=== PATIENT | female | born 1995 | race Caucasian/White ===

== ENCOUNTER 2025-01-10 11:05 | Inpatient (IN) ==
[2025-01-10] MEDS ORDERED: LIDOCAINE 1% LOCAL 20 ML VIAL INFIL PRN (11:35)
[2025-01-10] MEDS ORDERED: LACTATED RINGER'S 1,000 ML IV PRN (11:35)
[2025-01-10 12:09] LABS: Hematocrit (blood only) 36.8 % (37.0-47.0); Hemoglobin 12.6 g/dl (12.0-16.0); Mean Corpuscular Hemoglobin 30.3 pg (25.0-34.0); Mean Corpuscular Hgb Conc 34.2 g/dL (32.0-36.0); Mean Corpuscular Volume 88.5 fL (80.0-100.0); Mean Platelet Volume 10.1 fL (9.4-12.4); Platelet Count 211 K/uL (130-400); RDW Coefficient of Variation 13.7 % (11.5-14.5); RDW Standard Deviation 44.5 fL (36.4-46.3); Red Blood Count 4.16 M/uL (4.20-5.40); White Blood Count 13.28 K/ul (4.8-10.8)
--- NOTE | 2025-01-10 13:30 | History & Physical Report ---
Date of Service January 10, 2025 Assessment & Plan (1) Uterine contractions at greater than 20 weeks of gestation: Plan: 29-year-old G1, P0 at 37 weeks and 6 days of gestational presented today with contractions and in active labor, Vital signs stable afebrile, heart rate reassuring, GBS negative, Patient has about plan, she wanted to labor at home since 7 PM last night. We discussed pain management during labor, epidural in details. Patient wants to think about it and then decide. We discussed expectant management versus artificial rupture of membranes to augment labor, she wants to think about that to. All questions were answered. Continue to monitor. (2) Active labor at term: Admission and Anticipated Discharge Date Admission Date: January 10, 2025 History of Present Illness Primary Care Provider: Felicitas Masterson DO Patient is a 29-year-old G1, P0 at 37 weeks and 6 days of gestation who has been feeling contractions since 7 PM last night, ambulating 1 close around regular since this morning. She also had pinkish discharge off and on on toilet paper no bright red bleeding. No leakage of fluids. She reports good movements. She called this morning around 6:30 and recommended to come into labor and delivery. She wants to labor at home as much as she can and then she decided to come in. She has about plan and she does not want pain medication or epidural during labor. Her has been uncomplicated, GBS negative. Home Medications Medication Instructions Recorded Confirmed Type qqoyhgax-wzw-[id number]-FA 1 mg 1 tab PO DAILY 01/10/25 01/10/25 History tablet sertraline 50 mg tablet 50 mg PO 1XD 01/10/25 01/10/25 History Patient History Social History Smoking Status: Never smoker Second Hand Exposure: No; Do You Dip or Chew Tobacco: No; Tobacco Cessation Education Requested by Patient: No Hx Alcohol Use: No Hx Substance Use: No Preferred Language: Sinhala Communication Ability: Effective Tire Builder Heavy Service Required: No Beliefs That Will Affect Care: None marital status: Current Living Situation Comment: Lives with Other Information That Helps Us Care for You: No Feels Safe at Home: Yes Safety Concerns: Feels Safe At This Time 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 Devices: 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 No history of STDs, no history of chlamydia, gonorrhea, herpes Review of Systems as per Subjective / HPI Physical Exam Constitutional: WD/WN, vitals as above well developed, well nourished and + acute distress ( With contractions, looks tired since she has been up all night from havin) Genitourinary: normal external appearance OB Exam Abdomen: + vertex Manual OB Exam: + cervical dilation 5 cm, + cervical effacement 80% and + statio n -2 ( bulging bag) OB Exam Monitor Tracing: + external uterine monitor used and + category I Results & Data Vital Signs (Past 12 Hours) Vital Signs Temp Pulse Resp BP 01/10/25 11:23 36.9 C 84 16 126/80 01/10/25 11:21 84 126/80 01/10/25 11:20 16 01/10/25 11:20 36.9 C 16 Laboratory Results Lab Results 01/10/25 Range/Units 11:43 WBC 13.28 H (4.8-10.8) K/ul RBC 4.16 L (4.20-5.40) M/uL Hgb 12.6 (12.0-16.0) g/dl Hct 36.8 L (37.0-47.0) % MCV 88.5 (80.0-100.0) fL MCH 30.3 (25.0-34.0) pg MCHC 34.2 (32.0-36.0) g/dL RDW Std Deviation 44.5 (36.4-46.3) fL RDW Coeff of Brie 13.7 (11.5-14.5) % Plt Count 211 (130-400) K/uL MPV 10.1 (9.4-12.4) fL Treponema pallidum Ab Negative (Negative) Code Status & VTE Plan VTE Prophylaxis Plan VTE Prophylaxis will be ordered: No
--- NOTE | 2025-01-10 17:13 | Obstetrical Progress Note ---
Date of Service January 10, 2025 Assessment & Plan Admission and Anticipated Discharge Date Admission Date: January 10, 2025 Subjective Patient is moaning in pain VE; 8/ 90%/ 0, bulging bag, blood show+, declined AROM FHR categ I Continue to monitor closely Results & Data Vital Signs (Past 12 Hours) Vital Signs Temp Pulse Resp BP 01/10/25 15:07 37.1 C 14 01/10/25 15:04 86 128/79 01/10/25 14:31 90 126/88 01/10/25 11:23 36.9 C 84 16 126/80 01/10/25 11:21 84 126/80 01/10/25 11:20 16 01/10/25 11:20 36.9 C 16
--- OUTSIDE RECORDS SUMMARY | 2025-01-10 18:48 | External Medical Summary | Summary of Care ---
Author Name Unknown Organization [facility] Address [address] [place] [address] Phone [phone] Care Team Providers Care Veneer Joiner Name Role Phone Felicitas Masterson Ivy PALOMARES Primary Care Provider Reason for Visit * Reason Comments Outpatient Testing Encounter Details Date Type Department Care Team (Late st Contact Info) Description 12/27/2024 8:40 AM EST Laboratory Laboratory, [facility] [address] [place] [address] [facility] [address] [place] [address] Pruritus of in third trimester Allergies No known active allergiesdocumented as of this encounter (statuses as of 12/27/2024) Medications Sertraline HCl 50 MG Oral Tablet (Zoloft) TAKE 1 TABLET BY MOUTH EVERY MORNING 90 Tablet 3 06/14/2024 Active 28-0.8 MG Oral Tablet Take by mouth. Active Magnesium 250 MG Oral Tablet Take 1 Tablet by mouth in the morning. Active Calcium 200 MG Oral Tablet Take 200 mg by mouth in the morning. Active Vitamin D 50 MCG (1999 UT) Oral Capsule Take 2,000 Units by mouth in the morning. Active Iron Complex Oral Capsule Take by mouth. Active Vitamin C Oral Tablet Chewable Take 1 Tablet by mouth in the morning. Active documented as of this encounter (statuses as of 12/27/2024) Active Problems Problem Noted Date Diagnosed Date Rh negative status during 06/23/2024 Supervision of normal first 06/22/2024 Anxiety during 06/22/2024 Overview (06/22/2024): Sertraline, weekly therapy Anxiety Anemia Estimated Date of Delivery Comme nts Yes 01/25/2025 Based on last me nstrual period of 04/20/2024 (Exact Date) documented as of this encounter (statuses as of 12/27/2024) Social History Tobacco Use Types Packs/Day Years Used Date Smoking Tobacco: Never Smokeless Tobacco: Never Alcohol Use Standard Drinks/Week Comments Not Currently 7 (1 standard drink = 0.6 oz pur e alcohol) social PHQ-2 Answer Date Recorded PHQ Adult Total Score 2 05/04/2024 Hunger Vital Sign Answer Date Recorded Within the past 12 months, y ou worried that your food would run out before you got the money to buy more. Never true 09/06/20 24 Within the past 12 months, t he food you bought just didn't last and you didn't have money to get more. Never true 09/06/2024 [place] Depression Scale Answer Date Recorded [place] Depression Scale Total 13 06/22/2024 The thought of harming myself has occurred to me . Never 06/22/2024 Childcare Answer Date Recorded Do you feel overwhelmed with taking care of a child, family member or friend? No 09/06/2024 Does your family need help f inding childcare? (Household - for ages 0-17 years) Not on file 09/06/2024 Clothing Answer Date Recorded Have you been unable to get clothing when it was really needed? No 09/06/2024 Is your family able to get c lothes or diapers when needed? (Household - for ages 0-17 years) Not on file 09/06/2024 Personal Safety Answer Date Recorded Do you feel unsafe or have concerns for your saf ety? No 09/06/2024 Do you have concerns for you r family's safety? (Household - for ages 0-17 years) Not on file 09/06/2024 Utilities Answer Date Recorded Do you have trouble paying y our heating, water, or electric bill? No 09/06/2024 Is your family able to pay t he heat, water, or electric bill? (Household - for ages 0-17 years) Not on file 09/06/2024 Does your family have access to good internet? (Household - for ages 0-17 years) Not on file 09/06/2024 Employment Status Answer Date Recorded Are you unemployed or without regular income? No 09/06/2024 Does the household have a re gular source of income? (Household - for ages 0-17 years) Not on file 09/06/2024 Social Connections Answer Date Recorded How often do you feel lonely or isolated from th ose around you? Never 09/06/2024 Financial Resource Strain Answer Date R ecorded Do you have any trouble payi ng for your medications, or do you think you might in the future? No 09/06/2024 Does your family have troubl e paying for medicine? (Household - for ages 0-17 years) Not on file 09/06/2024 Transportation Needs Answer Date Record ed READ ONLY Do you have troubl e getting a ride to medical visits or work? Never True 09/06/2024 Does your family have a hard time getting a ride to doctors visits? (Household - for ages 0-17 years) Not on file 09/06/2024 Has lack of transportation k ept you from medical appointments, meetings, work, or from getting things needed for daily living? Check all that apply. No 09/06/2024 Do you (or your family) have trouble finding or paying for a ride (transportation)? (Household - for ages 0-17 years) Not on file 09/06/2024 Housing Stability Answer Date Recorded Do you currently live in a s helter or have no steady place to sleep at night? No 09/06/2024 READ ONLY Do you think you a re at risk of becoming homeless? No 09/06/2024 Does your family worry about paying for your home or becoming homeless? (Household - for ages 0-17 years) Not on file 1 Are you homeless or worried that you might be in the future? No 09/06/2024 Are you (or your family) nan eless or worried that you might be in the future? (Household - for ages 0-17 years) Not on file Food Insecurity Answer Date Recorded Do you need food for this week? No 09/06/2024 Are you able to get enough f ood for your family? (Household - for ages 0-17 years) Not on file 09/06/2024 Does your family need food t his week? (Household - for ages 0-17 years) Not on file 09/06/2024 Do you always have enough fo od for your family? (Household - for ages 0-17 years) Not on file 09/06/2024 Estimated Date of Delivery Comme nts Yes 01/25/2025 Based on last me nstrual period of 04/20/2024 (Exact Date) Sex and Gender Information Value Date Recorded Sex Assigned at Not on file Legal Sex Female 4:15 PM EST Gender Identity Not on file Sexual Orientation Not on file documented as of this encounter Plan of Treatment Upcoming Encounters Date Type Department Care Team (Late st Contact Info) Description 12/30/2024 10:45 AM EST Office Visit Gynecology/Obstetrics [facility] [address] [place] [address] Bernabe Reid MD [address] [place] [phone] 12/27/2025 2:20 PM EST Office Visit DermatologyAv [address] [place] [phone] Dary Chaves PA-C [address] [place] [address] [place] [phone] Pending Results Name Type Priority Associated Diagnoses Date /Time BILE ACIDS, FRACTIONATED AND TOTAL Lab Routine Pruritus of in third trimester 12/27/2024 8:25 AM EST Scheduled Procedures Name Priority Associated Diagnoses Date/Ti me COLONOSCOPY FLEXIBLE PROXIMAL DIAGNOSTIC Recall Blood in stool Health Maintenance Due Date Last Done Comments DTap/Tdap Vaccines (1 - Tdap) 2016 Hepatitis B Vaccine (1 of 3 - 19+ 3-dose series) 2016 COVID-19 Vaccine ( - 2023-2 5 season) 2024 Influenza Vaccine (FLU shot) (#1) 2024 Depression Screening 05/04/2025 05/04/2024 Pap Smear 07/21/2026 07/21/2023 HPV (Gardasil) Vaccine Aged Out No lo nger eligible based on patient's age to complete this topic MENINGOCOCCAL (MENACTRA/MENVEO) Aged Out No longer eligible based on patient's age to complete this topic Pneumococcal Vaccine: Pediat rics (0 to 5 Years) and At-Risk Patients (6 to 18 Years and 19+ Years) Aged Out No longer eligible b ased on patient's age to complete this topic documented as of this encounter Goals Goal Patient Goal Type Associated Problems Recent Progress Patient-Stated? Author Reminders Care Plan OB Reminders No Mychart, Provider documented as of this encounter Medical Devices Not on filedocumented as of this encounter Visit Diagnoses Diagnosis Pruritus of in third trimester documented in this encounter Additional Health Concerns Active Problems Noted Date Diagnosed Date OB Reminders 06/22/2024 documented as of this encounter Care Teams Veneer Joiner Relationship Specialty Start Date End Date Felicitas Masterson DO [address] [place] [address] PCP - General Family Medicine 04/22/23 documented as of this encounter
--- OUTSIDE RECORDS SUMMARY | 2025-01-10 18:48 | External Medical Summary | Summary of Care ---
Author Name Unknown Organization [facility] Address [address] [place] [address] Phone [phone] Care Team Providers Care Prize Coordinator Name Role Phone Felicitas Masterson Ivy Primary Care Provider Reason for Visit * Reason Comments Return Visit Encounter Details Date Type Department Care Team (Late st Contact Info) Description 12/30/2024 10:45 AM EST Office Visit Gynecology/Obstetric [facility] [address] [place] [address] Bernabe Reid MD [address] [place] [phone] Encounter for supervision of normal first in third trimester*; Anxiety during ; Rh negative status during in third trimester Allergies No known active allergiesdocumented as of this encounter (statuses as of 12/30/2024) Medications Sertraline HCl 50 MG Oral Tablet (Zoloft) TAKE 1 TABLET BY MOUTH EVERY MORNING 90 Tablet 3 06/14/2024 Active 28-0.8 MG Oral Tablet Take by mouth. Active Magnesium 250 MG Oral Tablet Take 1 Tablet by mouth in the morning. Active Calcium 200 MG Oral Tablet Take 200 mg by mouth in the morning. Active Vitamin D 50 MCG (2000 UT) Oral Capsule Take 2,000 Units by mouth in the morning. Active Iron Complex Oral Capsule Take by mouth. Active Vitamin C Oral Tablet Chewable Take 1 Tablet by mouth in the morning. Active documented as of this encounter (statuses as of 12/30/2024) Active Problems Problem Noted Date Diagnosed Date Rh negative status during 06/23/2024 Supervision of normal first 06/22/2024 Anxiety during 06/22/2024 Overview (06/22/2024): Sertraline, weekly therapy Anxiety Anemia Estimated Date of Delivery Comme nts Yes 01/25/2025 Based on last me nstrual period of 04/20/2024 (Exact Date) documented as of this encounter (statuses as of 12/30/2024) Social History Tobacco Use Types Packs/Day Years [...] money to get more. Never true 09/06/2024 [place] Depression Scale Answer Date Recorded [place] Depression Scale Total 13 06/22/2024 The thought [...] for ages 0-17 years) Not on file 10 /05/2024 Food Insecurity Answer Date Recorded Do you [...] on file documented as of this encounter Last Filed Vital Signs Vital Sign Reading Time Taken Comments Blood Pressure 130/72 12/30/2024 10:58 AM EST Pulse - - Temperature - - Respiratory Rate - - Oxygen Saturation - - Inhaled Oxygen Concentration - - Weight 98.9 kg (218 lb) 12/30/2024 10:58 AM EST Height - - Body Mass Index 31.28 08/17/2024 8:50 AM EDT documented in this encounter Progress Notes * Bernabe Reid MD - 12/30/2024 11:09 AM EST Patient is doing well with no significant complaints. Patient perceives good movement. Cervical culture was done. Pelvic exam was done. Results of pelvic exam were explained to both her and herhusband. 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 Manager Pauly documented in this encounter Plan of Treatment Upcoming Encounters Date Type Department Care Team (Late st Contact Info) Description 01/07/2025 2:45 PM EST Office Visit Gynecology/Obstetrics [facility] [address] [place] [address] Concepcion Sauceda CRNP [address] [place] [phone] 12/27/2025 2:20 PM EST Office Visit [address] [place] [phone] Dary Chaves PA-C [address] [place] [address] [place] [phone] Pending Results Name Type Priority Associated Diagnoses Date /Time GROUP B STREP CULTURE/PCR Lab Routine Encounter for supervision of normal first in third trimester 12/30/2024 11:53 AM EST Scheduled Orders Name Type Priority Associated Diagnoses Orde r Schedule GROUP B STREP CULTURE/PCR Lab Routine Encounter for supervision of normal first in third trimester Expected: 12/30/2024, Expires: 12/30/2025 Scheduled Procedures Name Priority Associated Diagnoses Date/Ti me COLONOSCOPY FLEXIBLE PROXIMAL DIAGNOSTIC Recall Blood in stool Health Maintenance Due Date Last Done Comments DTap/Tdap Vaccines (1 - Tdap) 2016 Hepatitis B Vaccine (1 of 3 - 19+ 3-dose series) 2016 COVID-19 Vaccine (2023-2 5 season) 2024 Influenza Vaccine (FLU shot) [...] as of this encounter Visit Diagnoses Diagnosis Encounter for supervision of normal first in third trimester- Primary Supervision of normal first Anxiety during Rh negative status during in third trimester documented in this encounter Additional Health Concerns Active Problems Noted Date Diagnosed Date OB Reminders 06/22/2024 documented as of this encounter Care Teams Prize Coordinator Relationship Specialty Start Date End Date Felicitas Masterson DO [address] [place] [address] PCP - General Family Medicine 04/22/23 documented as of this encounter
--- OUTSIDE RECORDS SUMMARY | 2025-01-10 18:48 | External Medical Summary ---
Author Name Unknown Address Unknown Organization K01:[facility] [address] [place] [address] Laboratory Report Ordering Provider Test Date Status PHILIPP MORRISSEY 12/30/2024 11:53:16 Final Observation Date Value Abnormality Reference (Units ) Status Streptococcus agalactiae DNA [Presence] in Specimen by ROSITA with probe detection 12/30/2024 11:53:16 Negative Negative Final No Group B Streptococcus det ected by culture-enhanced PCR (amplified probe). GBS GBSCT - [facility] 12/30/2024 11:53:16 0.0 Final GBS SPCCT - [facility] 12/30/2024 11:53:16 32.0 Final Performing Location [facility] [place] - [address] [place] [address]
--- OUTSIDE RECORDS SUMMARY | 2025-01-10 18:48 | External Medical Summary ---
Author Name Unknown Address Unknown Organization : Laboratory Report Ordering Provider Test Date Status LIVE JEREZ 12/27/2024 08:25:18 Final Observation Date Value Abnormality Reference (Units ) Status Bile acid [Moles/volume] in Serum --fasting 12/27/2024 08:25:18 SEE BELOW Final TESTS--------- ----RESULTS--------UNITS--REF. RANGE---
Cholic Acid 0.6 umol/L < OR = 1.8
Deoxycholic Acid <0.5 umol/L < OR = 2.4
Chenodeoxycholic Acid 0.6 umol/L < OR = 3.1
Total Bile Acids <1.5 umol/L < OR = 6.8
This test was developed and its analytical
performance characteristics have been determined
by [facility]. It has not been cleared or
approved by FDA. This assay has been validated
pursuant to the CLIA regulations and is used for
clinical purposes.
Test performed by [facility]
[address],
[place] [address]

Quality Improvement Manager: Lillie Brennan MD,PHD,KARON Performing Location
--- OUTSIDE RECORDS SUMMARY | 2025-01-10 18:48 | External Medical Summary | Summary of Care ---
Author Name Unknown Organization [facility] Address [address] [place] [place] [address] Phone [phone] Care Team Providers Care Interior Mechanic Name Role Phone Felicitas Masterson Ivy PALOMARES Primary Care Provider Reason for Visit * Reason Onset Date Comments Appointment 01/07/2025 Encounter Details Date Type Department Care Team (Late st Contact Info) Description 01/07/2025 Telephone Family Practice [facility] [address] [facility] [place] [address] Vidya Sauceda CRNP [address] [place] [address] Appointment Allergies No known active allergiesdocumented as of this encounter (statuses as of 01/10/2025) Medications Sertraline HCl 50 MG Oral Tablet [...] as of this encounter (statuses as of 01/10/2025) Active Problems Problem Noted Date Diagnosed Date Rh negative status during 06/23/2024 Supervision of normal first 06/22/2024 Anxiety during 06/22/2024 Overview (06/22/2024): Sertraline, weekly therapy Anxiety Anemia Estimated Date of Delivery Comme nts Yes 01/25/2025 Based on last me nstrual period of 04/20/2024 (Exact Date) documented as of this encounter (statuses as of 01/10/2025) Social History Tobacco Use Types Packs/Day Years [...] money to get more. Never true 09/06/2024 [place] Depression Scale Answer Date Recorded [place] Depression Scale Total 13 06/22/2024 The thought [...] ages 0-17 years) Not on file 09/06/2024 Food Insecurity Answer Date Recorded Within the past 12 months, y ou worried that your food would run out before you got the money to buy more. Never true 09/06/20 24 Within the past 12 months, t he food you bought just didn't last and you didn't have money to get more. Never true 09/06/2024 Do you need food for this week? No 09/06/2024 Estimated Date of Delivery Comme nts Yes 01/25/2025 Based on last me nstrual period of 04/20/2024 (Exact Date) Sex and Gender Information Value Date Recorded Sex Assigned at Not on file Legal Sex Female 4:15 PM EST Gender Identity Not on file Sexual Orientation Not on file documented as of this encounter Miscellaneous Notes * Telephone Encounter - Belle Nowak MD - 01/10/2025 8:31 AM EST I called her and no answer, LM to call me back Thanks * Telephone Encounter - Maggie Ruiz OSA - 01/07/2025 3:19 PM EST Pt needs a 1 week hansel would like it with vidya. Nothing open until the please assist documented in this encounter Plan of Treatment Upcoming Encounters Date Type Department Care Team (Late st Contact Info) Description 01/12/2025 1:00 PM EST Office Visit Gynecology/Obstetrics Dam[facility] Carney [address] [place] [address] Reba An, DNP, CNM [address] [place] [address] 12/27/2025 2:20 PM EST Office Visit [address] [place] [phone] Dary Chaves PA-C [address] [place] [address] [place] [phone] Scheduled Procedures Name Priority Associated Diagnoses Date/Ti [...] Not on filedocumented as of this encounter Additional Health Concerns Active Problems Noted Date Diagnosed Date OB Reminders 06/22/2024 documented as of this encounter Care Teams Interior Mechanic Relationship Specialty Start Date End Date Felicitas Masterson DO [address] [facility] [place] [address] PCP - General Family Medicine 04/22/23 documented as of this encounter
--- OUTSIDE RECORDS SUMMARY | 2025-01-10 18:48 | External Medical Summary | Summary of Care ---
Author Name Unknown Organization [facility] Address [address] [facility] [place] [address] Phone [phone] Care Team Providers Care Web Knitter Name Role Phone Felicitas Masterson Ivy PALOMARES Primary Care Provider Reason for Visit * Reason Onset Date Comments Appointment 01/07/2025 Encounter Details Date Type Department Care Team (Late st Contact Info) Description 01/07/2025 Telephone Family Practice [facility] [address] [place] [address] Concepcion Sauceda CRNP [address] [place] [address] Appointment Allergies No known active allergiesdocumented as [...] money to get more. Never true 09/06/2024 [place] Depression Scale Answer Date Recorded [place] Depression Scale Total 13 06/22/2024 The thought [...] encounter Miscellaneous Notes * Telephone Encounter - Maggie Ruiz OSA - 01/07/2025 3:19 PM EST Pt needs a 1 week hansel would like it with concepcion. Nothing open until the please assist documented in this encounter Plan of Treatment Upcoming Encounters Date Type Department Care Team (Late st Contact Info) Description 01/12/2025 1:00 PM EST Office Visit Gynecology/Obstetrics [facility] [address] [place] [address] Reba An, DNP, CNM [address] [place] [address] 12/27/2025 2:20 PM EST Office Visit [address]ermatologyAv [address] [place] [phone] Dary Chaves, PABuddy [address] [place] [address] [place] [phone] Scheduled Procedures Name Priority Associated Diagnoses Date/Ti me COLONOSCOPY FLEXIBLE PROXIMAL DIAGNOSTIC Recall Blood in stool Health Maintenance Due Date Last Done Comments DTap/Tdap Vaccines (1 - Tdap) 2016 Hepatitis B Vaccine (1 of 3 - 19+ 3-dose series) 2016 COVID-19 Vaccine (1 - 2023-2 5 season) 2024 Influenza Vaccine [...] documented as of this encounter Care Teams Web Knitter Relationship Specialty Start Date End Date Felicitas Masterson DO [address] [place] [place], [place] [address] PCP - General Family Medicine 04/22/23 documented as of this encounter
--- OUTSIDE RECORDS SUMMARY | 2025-01-10 18:48 | External Medical Summary ---
Author Name Unknown Address Unknown Organization K0G:[facility] [address] [place] [address] Laboratory Report Ordering Provider Test Date Status LIVE JEREZ 12/24/2024 13:53:18 Final Observation Date Value Abnormality Reference (Units ) Status WBC, Total 12/24/2024 13:53:18 9.50 4.00-10.8 0 (K/uL) Final RBC 12/24/2024 13:53:18 3.91 3.85-5.15 (M/uL) Final Hemoglobin 12/24/2024 13:53:18 12.1 12.0-15.3 (g/dL) Final HCT 12/24/2024 13:53:18 36.5 36.0-45.2 (%) Final MCV 12/24/2024 13:53:18 93.4 81.5-97.5 (fL) Final MCH 12/24/2024 13:53:18 30.9 27.0-34.0 (pg) Final MCHC 12/24/2024 13:53:18 33.2 32.0-36.0 (g/dL) Final RDW 12/24/2024 13:53:18 14.2 11.5-15.5 (%) Final Platelets 12/24/2024 13:53:18 218 140-400 (K /uL) Final MPV 12/24/2024 13:53:18 9.9 6.6-11.1 ( fL) Final Performing Location [facility] [address] [place] [address]
--- OUTSIDE RECORDS SUMMARY | 2025-01-10 18:48 | External Medical Summary | Summary of Care ---
Author Name Unknown Organization [facility] Address [address] [place] [address] Phone [phone] Care Team Providers Care Hris Analyst Name Role Phone Felicitas Masterson Ivy Primary Care Provider Reason for Visit * Reason Comments Return Visit Encounter Details Date Type Department Care Team (Late st Contact Info) Description 12/30/2024 10:45 AM EST Office Visit Gynecology/Obstetric [facility] [address] [place] [address] Bernabe Reid MD [address] [place] [phone] Encounter for supervision of normal first in [...] money to get more. Never true 09/06/2024 [place] Depression Scale Answer Date Recorded [place] Depression Scale Total 13 06/22/2024 The thought [...] were explained to both her and herhusband. Chemical Instrumentation Officer Pauly documented in this encounter Plan of Treatment Upcoming Encounters Date Type Department Care Team (Late st Contact Info) Description 01/07/2025 2:45 PM EST Office Visit Gynecology/Obstetrics [facility] [address] [place] [address] Concepcion Sauceda CRNP [address] [place] [address] 12/27/2025 2:20 PM EST Office Visit [address] [place] [phone] Dary Chaves PA-C [address] [place] [address] [place] [phone] Pending Results Name Type Priority Associated Diagnoses [...] documented as of this encounter Care Teams Hris Analyst Relationship Specialty Start Date End Date Felicitas Masterson DO [address] [place] [address] PCP - General Family Medicine 04/22/23 documented as of this encounter
--- OUTSIDE RECORDS SUMMARY | 2025-01-10 18:48 | External Medical Summary | Summary of Care ---
Author Name Unknown Organization [facility] Address [address] [place] [address] Phone [phone] Care Team Providers Care Ply Bander Name Role Phone Felicitas Masterson Ivy PALOMARES Primary Care Provider Reason for Visit * Reason Comments Return Visit Encounter Details Date Type Department Care Team (Late st Contact Info) Description 01/07/2025 2:45 PM EST Office Visit Gynecology/Obstetric s [facility] [address] [place] [address] Concepcion Sauceda CRNP [address] [place] [address] Encounter for supervision of normal first in third trimester*; Anxiety during ; Rh negative status during in third trimester Allergies No known active allergiesdocumented as of this encounter (statuses as of 01/07/2025) Medications Sertraline HCl 50 MG Oral Tablet [...] as of this encounter (statuses as of 01/07/2025) Active Problems Problem Noted Date Diagnosed Date Rh negative status during 06/23/2024 Supervision of normal first 06/22/2024 Anxiety during 06/22/2024 Overview (06/22/2024): Sertraline, weekly therapy Anxiety Anemia Estimated Date of Delivery Comme nts Yes 01/25/2025 Based on last me nstrual period of 04/20/2024 (Exact Date) documented as of this encounter (statuses as of 01/07/2025) Social History Tobacco Use Types Packs/Day Years [...] money to get more. Never true 09/06/2024 [place] Depression Scale Answer Date Recorded [place] Depression Scale Total 13 06/22/2024 The thought [...] Sign Reading Time Taken Comments Blood Pressure 126/74 01/07/2025 2:46 PM EST Pulse - - Temperature - - Respiratory Rate - - Oxygen Saturation - - Inhaled Oxygen Concentration - - Weight 100.5 kg (221 lb 9.3 oz) 01/07/2025 2:46 PM EST Height - - Body Mass Index 31.79 08/17/2024 8:50 AM EDT documented in this encounter Progress Notes * Concepcion Sauceda CRNP - 01/07/2025 3:04 PM EST 37w3d Normal aches and pains of . Baby is active. No contractions, bleeding, LOF. SLOAN Stone * Ariana Marino CMA - 01/07/2025 2:46 PM EST 37w3d Denies any concerns documented in this encounter Plan of Treatment Upcoming Encounters Date Type Department Care Team (Late st Contact Info) Description 01/12/2025 1:00 PM EST Office Visit Gynecology/Obstetrics [facility] [address] [place] [address] Reba An, DNP, CNM [address] [place] [address] 12/27/2025 2:20 PM EST Office Visit [address] [address] [place] [phone] Dary Chaves PA-C [address] [place] [address] [place] [phone] Scheduled Procedures Name Priority Associated Diagnoses Date/Ti [...] documented as of this encounter Care Teams Ply Bander Relationship Specialty Start Date End Date Felicitas Masterson DO [address] [place] [address] PCP - General Family Medicine 04/22/23 documented as of this encounter
--- OUTSIDE RECORDS SUMMARY | 2025-01-10 18:48 | External Medical Summary | Summary of Care ---
Author Name Unknown Organization [facility] Address [address] [place] [address] Phone [phone] Care Team Providers Care Maintenance Painter Name Role Phone Felicitas Masterson Ivy PALOMARES Primary Care Provider Reason for Visit * Reason Comments Return Visit Encounter Details Date Type Department Care Team (Late st Contact Info) Description 12/22/2024 2:15 PM EST Office Visit Gynecology/Obstetric s [facility] [address] [place] [address] Concepcion Sauceda CRNP [address] [place] [address] Encounter for supervision of normal first in third trimester*; Anxiety during ; Rh negative status during in third trimester Allergies No known active allergiesdocumented as of this encounter (statuses as of 12/22/2024) Medications Sertraline HCl 50 MG Oral Tablet [...] as of this encounter (statuses as of 12/22/2024) Active Problems Problem Noted Date Diagnosed Date Rh negative status during 06/23/2024 Supervision of normal first 06/22/2024 Anxiety during 06/22/2024 Overview (06/22/2024): Sertraline, weekly therapy Anxiety Anemia Estimated Date of Delivery Comme nts Yes 01/25/2025 Based on last me nstrual period of 04/20/2024 (Exact Date) documented as of this encounter (statuses as of 12/22/2024) Social History Tobacco Use Types Packs/Day Years [...] money to get more. Never true 09/06/2024 [place] Depression Scale Answer Date Recorded [place] Depression Scale Total 13 06/22/2024 The thought [...] Sign Reading Time Taken Comments Blood Pressure 122/70 12/22/2024 2:17 PM EST Pulse - - Temperature - - Respiratory Rate - - Oxygen Saturation - - Inhaled Oxygen Concentration - - Weight 98.9 kg (218 lb) 12/22/2024 2:17 PM EST Height - - Body Mass Index 31.28 08/17/2024 8:50 AM EDT documented in this encounter Progress Notes * Concepcion Sauceda CRNP - 12/22/2024 2:49 PM EST 35w1d Complaints: still with some vaginal discharge and odor. Vaginal swab negative last week. Feeling well otherwise. Good FM. No contractions, bleeding, or LOF. SLOAN Stone * Ariana Marino CMA - 12/22/2024 2:17 PM EST 35w1d Still having odor with discharge. Was tested 12/15/2024, WNL. documented in this encounter Plan of Treatment Upcoming Encounters Date Type Department Care Team (Late st Contact Info) Description 12/30/2024 10:45 AM EST Office Visit Gynecology/Obstetrics [facility] [address] [facility] [place] [address] Bernabe Reid MD [address] [place] [phone] 12/27/2025 2:20 PM EST Office [facility] [address] [place] [phone] Dary Chaves PA-C [address] [place] [address] [place] [phone] Scheduled Procedures Name Priority Associated Diagnoses Date/Ti [...] documented as of this encounter Care Teams Maintenance Painter Relationship Specialty Start Date End Date Felicitas Masterson DO [address] [place] [address] PCP - General Family Medicine 04/22/23 documented as of this encounter
--- OUTSIDE RECORDS SUMMARY | 2025-01-10 18:48 | External Medical Summary | Summary of Care ---
Author Name Unknown Organization [facility] Address [address] [place] [address] Phone [phone] Care Team Providers Care Granular Operator Name Role Phone Felicitas Masterson Ivy PALOMARES Primary Care Provider Reason for Visit * Reason Comments Outpatient Testing Encounter Details Date Type Department Care Team (Late st Contact Info) Description 12/24/2024 1:50 PM EST Laboratory Laboratory, [facility] [address] [place] [address] [facility] [address] [place] [address] Pruritus of in third trimester Allergies No known active allergiesdocumented as of this encounter (statuses as of 12/24/2024) Medications Sertraline HCl 50 MG Oral Tablet [...] as of this encounter (statuses as of 12/24/2024) Active Problems Problem Noted Date Diagnosed Date Rh negative status during 06/23/2024 Supervision of normal first 06/22/2024 Anxiety during 06/22/2024 Overview (06/22/2024): Sertraline, weekly therapy Anxiety Anemia Estimated Date of Delivery Comme nts Yes 01/25/2025 Based on last me nstrual period of 04/20/2024 (Exact Date) documented as of this encounter (statuses as of 12/24/2024) Social History Tobacco Use Types Packs/Day Years [...] money to get more. Never true 09/06/2024 [place] Depression Scale Answer Date Recorded [place] Depression Scale Total 13 06/22/2024 The thought [...] 12/30/2024 10:45 AM EST Office Visit Gynecology/Obstetrics [facility] [address] [place] [address] Bernabe Reid MD [address] [place] [phone] 12/27/2025 2:20 PM EST Office Visit [address] [address] [place] [phone] Dary Chaves PA-C [address] [place] [address] [place] [phone] Pending Results Name Type Priority Associated Diagnoses Date /Time CBC Lab Routine Pruritus of in third trimester 12/24/2024 1:53 PM EST Scheduled Procedures Name Priority Associated Diagnoses [...] Author Reminders Care Plan OB Reminders No Agustin, Provider documented as of this encounter Medical Devices Not on filedocumented as of this encounter Visit Diagnoses Diagnosis Pruritus of in third trimester documented in this encounter Additional Health Concerns Active Problems Noted Date Diagnosed Date OB Reminders 06/22/2024 documented as of this encounter Care Teams Granular Operator Relationship Specialty Start Date End Date Felicitas Masterson DO [address] [place] [address] PCP - General Family Medicine 04/22/23 documented as of this encounter
--- OUTSIDE RECORDS SUMMARY | 2025-01-10 18:49 | External Medical Summary ---
Author Name Unknown Address Unknown Organization K0G:[facility] [address] [place] [address] Laboratory Report Ordering Provider Test Date Status ASTER BEDOLLA 12/04/2024 12:39:12 Final Observation Date Value Abnormality Reference (Units ) Status Albumin 12/04/2024 12:39:12 3.4 Below low normal 3.8-5.0 (g/dL) Final AST (Aspartate aminotransferase) 12/04/2024 12:39:12 22 10-35 (U/L) Final Alk Phos 12/04/2024 12:39:12 140 Above high normal 35-130 (U/L) Final ALT (Alanine aminotransferase) 12/04/2024 12:39:12 31 10-35 (U/L) Final Bilirubin, Total 12/04/2024 12:39:12 <0.2 <=1.2 (mg/dL) Final Bilirubin, Direct 12/04/2024 12:39:12 0.1 0.0-0.3 (mg/dL) Final Protein 12/04/2024 12:39:12 6.0 6.0-8.3 (g/dL) Final Performing Location [facility] [address] [place] [address]
--- OUTSIDE RECORDS SUMMARY | 2025-01-10 18:49 | External Medical Summary | Summary of Care ---
Author Name Unknown Organization [facility] Address [address] [place] [address] Phone [phone] Care Team Providers Care Angiography Nurse Name Role Phone Felicitas Masterson Ivy Primary Care Provider Reason for Visit * Reason Comments Return Visit Encounter Details Date Type Department Care Team (Late st Contact Info) Description 11/05/2024 2:15 PM EST Office Visit Gynecology/Obstetric s [facility] Carney [address] [place] [address] Concepcion Sauceda CRNP [address] [place] [address] Encounter for supervision of normal first in third trimester*; Anxiety during ; Rh negative status during in third trimester Allergies No known active allergiesdocumented as of this encounter (statuses as of 11/05/2024) Medications Sertraline HCl 50 MG Oral Tablet (Zoloft) TAKE 1 TABLET BY MOUTH EVERY MORNING 90 Tablet 3 06/14/2024 Active 28-0.8 MG Oral Tablet Take by mouth. Active Magnesium 250 MG Oral Tablet Take 1 Tablet by mouth in the morning. Active Calcium 200 MG Oral Tablet Take 200 mg by mouth in the morning. Active Hospital, Clinic, or Other Facility Administered Medication Ordered Dose Route Frequency Start Date End Date Status Rho D Immune Globulin (Rhophylac) inj 300 mcgIndications:Rh negative status during in third trimester 300 mcg IM ONCE 11/05/2024 11/05/2024 Ended documented as of this encounter (statuses as of 11/05/2024) Active Problems Problem Noted Date Diagnosed Date Rh negative status during 06/23/2024 Supervision of normal first 06/22/2024 Anxiety during 06/22/2024 Overview (06/22/2024): Sertraline, weekly therapy Anxiety Anemia Estimated Date of Delivery Comme nts Yes 01/25/2025 Based on last me nstrual period of 04/20/2024 (Exact Date) documented as of this encounter (statuses as of 11/05/2024) Social History Tobacco Use Types Packs/Day Years [...] money to get more. Never true 09/06/2024 [place] Depression Scale Answer Date Recorded [place] Depression Scale Total 13 06/22/2024 The thought [...] Sign Reading Time Taken Comments Blood Pressure 122/68 11/05/2024 2:08 PM EST Pulse - - Temperature - - Respiratory Rate - - Oxygen Saturation - - Inhaled Oxygen Concentration - - Weight 92.5 kg (204 lb) 11/05/2024 2:08 PM EST Height - - Body Mass Index 29.27 08/17/2024 8:50 AM EDT documented in this encounter Progress Notes * Concepcion Sauceda CRNP - 11/05/2024 2:38 PM EST 28w3d Discussed boil in groin. No other concerns. Baby is active. No contractions, bleeding, LOF. Glucola, Rhogam today. SLOAN Stone * Ariana Marino CMA - 11/05/2024 2:08 PM EST 28w3d Rhogam today Declines TDAP documented in this encounter Plan of Treatment Upcoming Encounters Date Type Department Care Team (Late st Contact Info) Description 11/23/2024 1:30 PM EST Office Visit Gynecology/Obstetrics [facility] [address] [address] Concepcion Sauceda CRNP [address] [place] [address] 12/09/2024 1:00 PM EST Office Visit [address] [address] [place] [phone] Dary Chaves PA-C [address] [place] [address] [place] [address] Scheduled Procedures Name Priority Associated Diagnoses Date/Ti [...] 5 Years) and At-Risk Patients (6 to 64 Years) Aged Out No longer eligi ble based on patient's age to complete this [...] in third trimester documented in this encounter Administered Medications Inactive Administered Medications - up to 3 most recent administrations Medication Order MAR Action Action Date Dose Rate Site Rho D Immune Globulin (Rhophylac) inj 300 mcg 300 mcg, Intramuscular, ONCE, On Fri11/05/24 at 1500, For 1 dose, Do not administer until type and screen has been collected! 1 MCG = 5 INTERNATIONAL UNITSIndications:Rh negative status during in third trimester Given 11/05/2024 3:22 PM EST 300 mcg Ventrogluteal Left documented in this encounter Additional Health Concerns Active Problems Noted Date Diagnosed Date OB Reminders 06/22/2024 documented as of this encounter Care Teams Angiography Nurse Relationship Specialty Start Date End Date Felicitas Masterson DO [address] [place], [place] [phone] PCP - General Family Medicine 04/22/23 documented as of this encounter
--- OUTSIDE RECORDS SUMMARY | 2025-01-10 18:49 | External Medical Summary | Summary of Care ---
Author Name Unknown Organization [facility] Address [address] [place] [address] Phone [phone] Care Team Providers Care Tube Draw Helper Name Role Phone Felicitas Masterson Ivy PALOMARES Primary Care Provider Encounter Details Date Type Department Care Team (Late st Contact Info) Description 12/20/2024 Population Health External Data Unspecified Department Allergies No known active allergiesdocumented as of this encounter (statuses as of 12/20/2024) Medications Sertraline HCl 50 MG Oral Tablet [...] as of this encounter (statuses as of 12/20/2024) Active Problems Problem Noted Date Diagnosed Date Rh negative status during 06/23/2024 Supervision of normal first 06/22/2024 Anxiety during 06/22/2024 Overview (06/22/2024): Sertraline, weekly therapy Anxiety Anemia Estimated Date of Delivery Comme nts Yes 01/25/2025 Based on last me nstrual period of 04/20/2024 (Exact Date) documented as of this encounter (statuses as of 12/20/2024) Social History Tobacco Use Types Packs/Day Years [...] money to get more. Never true 09/06/2024 [place] Depression Scale Answer Date Recorded [place] Depression Scale Total 13 06/22/2024 The thought [...] Description 12/22/2024 2:15 PM EST [facility] [address] [place] [address] Concepcion Sauceda CRNP [address] [place] [address] 12/27/2025 2:20 PM EST Office Visit [address] [place] [phone] Dary Chaves PA-C [address] [place] [address] [place] [phone] Scheduled Procedures Name Priority Associated Diagnoses Date/Ti [...] documented as of this encounter Care Teams Tube Draw Helper Relationship Specialty Start Date End Date Felicitas Masterson DO [address] [place] [address] PCP - General Family Medicine 04/22/23 documented as of this encounter
--- OUTSIDE RECORDS SUMMARY | 2025-01-10 18:49 | External Medical Summary | Summary of Care ---
Author Name Unknown Organization [facility] Address [address] [facility] [place] [address] Phone [phone] Care Team Providers Care Gasoline Power Shovel Operator Name Role Phone Felicitas Masterson DO Primary Care Provider Reason for Visit * Reason Comments NEW PATIENT New pt. Here for ful l skin exam. No concerns. * Evaluate & Treat - Unlimited Visits (Within 30 days (routine)) - Authorized Specialty Diagnoses / Procedures Referred By Delphine franks Referred To Contact Dermatology Diagnoses Atypical nevi Felicitas Masterson DO [address] [place] [address] Phone: tel: fax: Referral ID Status Reason Start Date Expiration Date Visits Requested Visits Authorized [id number] Authorized Specialty Services Required 05/04/2024 [id number] Encounter Details Date Type Department Care Team (Late st Contact Info) Description 12/09/2024 1:00 PM EST [facility] [place] [facility] [address] [facility] [place] [phone] Dary Chaves PA-C [address] [place] [address] [place] [phone] Multiple nevi*; Skin exam, screening for cancer; Ephelides Allergies No known active allergiesdocumented as of this encounter (statuses as of 12/09/2024) Medications Sertraline HCl 50 MG Oral Tablet [...] as of this encounter (statuses as of 12/09/2024) Active Problems Problem Noted Date Diagnosed Date Rh negative status during 06/23/2024 Supervision of normal first 06/22/2024 Anxiety during 06/22/2024 Overview (06/22/2024): Sertraline, weekly therapy Anxiety Anemia Estimated Date of Delivery Comme nts Yes 01/25/2025 Based on last me nstrual period of 04/20/2024 (Exact Date) documented as of this encounter (statuses as of 12/09/2024) Social History Tobacco Use Types Packs/Day Years [...] money to get more. Never true 09/06/2024 [place] Depression Scale Answer Date Recorded [place] Depression Scale Total 13 06/22/2024 The thought [...] on file documented as of this encounter Patient Instructions * Patient Instructions* Dary Chaves PA-C - 12/09/2024 1:04 PM EST SUNSCREEN USE AND SUN PROTECTION: 1. The best protection is sun avoidance. Seek shade if you can, especially between 10am to 4pm (peak sun hours). 2. Use sunscreen with an SPF (Sun Protection Factor - the number on most sunscreen bottles) of 30 or more that protects from Ultraviolet A (UVA) and Ultraviolet B (UVB) wavelength light (strongly recommend SPF 50). This is referred to as broad spectrum sun protection because it protects from most wa velengths in both spectrums of UVA and UVB light. Unfortunately, even though the protection is broad it is not complete, therefore making sun avoidance the best protection. UVB and UVA have both beenimplicated in causing skin cancers. Older sunscreens only protected from UVB and sunscreens with added UVA protection should contain Titanium dioxide, Zinc oxide, or Avobenzone. Other oil free, non-comedogenic lotion with SPF 30 or greater is fine. 3. Use sun protection if outside for 15 minutes or more. Apply 20-30 minutes before going out and reapply every 1-2 hours. No sunscreen is truly water ''proof'' and it will wash away with sweat, swimming and rubbing. 4. Wear tightly woven, loose fitting (cooler) long sleeved clothing, UV-blocking sun glasses (eyes need protection as well) and wide-brimmed hatwear (no straw hats with holes because light still getsthrough). Strongly recommended *Neutrogena Pure and Free Baby SPF 60 (have separate face and body lotions) orCeraVe AM facial lotion (with SPF 30). If looking for non toxic alternatives-look for non-patel particle zinc. Product examples; Think sport, Think baby, [place], [place], AlbLoopIt, [place] baby. "Baby" products can be used for all ages. documented in this encounter Progress Notes * Dary Chaves PA-C - 12/09/2024 1:00 PM EST SUBJECTIVE: HPI: Verona Polk is a 29 year old female seen at the request of Felicitas Masterson DO for evaluation and treatment of full skin exam. Annual vulvar exams performed, no vulvar discoloration and/or lesions to be assessed per pt. - Tanning bed history. + Blistering sunburns. Pt is 33 weeks . No new or changing lesions, per pt. Proposal Review Analyst Documentation Patient offered retaining room cutter and declined. REVIEW OF SYSTEMS: SKIN: No other new or changing moles. HEME/LYMPH: No new or enlarging lumps or bumps. CONSTITUTIONAL: No nausea, vomiting, fevers, chills, diarrhea. No recent unintended weight loss, night sweats, appetite or malaise. RESP: negative MSK/EXT: Negative or as per HPI GI: negative CV: Negative or as per HPI Rest of systems are negative or as per HPI SKIN CANCER HX: NONE Reviewed, same day as visit, 0 [facility] Dermatology lab work(s)/pathology report(s) as well as those sent by referring provider prior to seeing pt. Past Medical History: Diagnosis Date Anemia Anxiety FAMILY HISTORY: Skin CA: None Skin Disorders: none SOCIAL HISTORY: Social History Tobacco Use Smoking status: Never Smokeless tobacco: Never Substance Use Topics Alcohol use: Not Currently Alcohol/week: 7.0 standard drinks of alcohol Types: 7 5 oz of wine per week Comment: social Vaping/E-Cigarette Use Vaping/E-Cigarette Use Never User Vaping/E-Cigarette Substances Vaping/E-Cigarette Devices MEDICA TIONS: Current Outpatient Medications Medication Sig Dispense Refill Sertraline HCl 50 MG Oral Tablet (Zoloft) TAKE 1 TABLET BY MOUTH EVERY MORNING 90 Tablet 3 28-0.8 MG Oral Tablet Take by mouth. Magnesium 250 MG Oral Tablet Take 1 Tablet by mouth in the morning. Calcium 200 MG Oral Tablet Take 200 mg by mouth in the morning. Vitamin D 50 MCG (2000 UT) Oral Capsule Take 2,000 Units by mouth in the morning. Iron Complex Oral Capsule Take by mouth. Vitamin C Oral Tablet Chewable Take 1 Tablet by mouth in the morning. No current facility-administered medications for this visit. ALLERGY: Patient has no known allergies. OBJECT BONNIE: GEN: alert, no distress, appears oriented, pleasant, and cooperative. SKIN: Detailed exam of hair, face including lids and lips, neck, chest, abdomen, back, bilateral upper ext. (arm, hand, fingers), bilateral lower ext. (leg, foot, toes), palpation of scalp, fingernails, toenails, inguinal areas, groin (mons pubis), buttocks, and anus completed: 1. Face/neck/trunk/bilat arms and legs-About 120 total; 2-6mm light and light- medium brown macules and soft papules. About 5 with slightly irregular borders and/or architecture. 2. Face/neck/trunk/bilat arms and legs-Some well defined light to medium brown homogenous non-stellate macules. ASSESS MENT/PLAN: 1. Nevi on face/neck/trunk/bilat arms and legs-no tx needed, pt given reassurance and written education about diagnosis. -Skin cancer brochure given and ABCDE's discussed with patient. Annual full body skin examination (unless I recommended otherwise), self-examination, and sun protection (SPF 30+ daily to sun exposed areas, with reapplication every 1-2 hours when out in sun for long periods of time) advised and discussed. Recommended sooner follow up for new or changing lesions. These changes include rapid enlargement, changes in color or shape or symptoms, bleeding, or other concerns. The common features and behavior of non-melanoma skin cancers (e.g. BCC/SCC) as well as the ABCDEs and ugly duckling features of melanoma were also reviewed. 2. Ephelides on face/neck/trunk/bilat arms and legs-no tx needed, pt given reassurance. Patient alone today. Photo(s) of #1-2 taken, pt verbally consented to having photo(s) taken. Follow-up: 1 year for full skin exam Photos and chart reviewed by Dr. Jamal Mohamud. Presum ed diagnoses, expected natural histories, and management options discussed with the patient at length. Questions were addressed and anticipatory guidance provided. They were instructed to contact me if additional questions, concerns, or problems develop in the interim. -There were no barriers to learning and no other pain was related to today's visit. The patient and/or person accompanying patient demonstrates understanding of the visit and treatment. Dary Chaves PA-C 12/09/2024 1:04 PM [address]ermatology [address] [place] [place] [phone] documented in this encounter Nursing Notes * Marilyn Goldstein LPN - 12/09/2024 12:58 PM EST Patient identified by full name and date of Chief Complaint Patient presents with NEW PATIENT New pt. Here for full skin exam. No concerns. documented in this encounter Plan of Treatment Upcoming Encounters Date Type Department Care Team (Late st Contact Info) Description 12/22/2024 2:15 PM EST Office Visit Gynecology/Obstetrics [facility] [address] [place] [address] Concepcion Sauceda CRNP [address] [place] [address] 12/27/2025 2:20 PM EST Office Visit [address] [place] [phone] Dary Chaves PA-C [address] [place] [address] [place] [phone] Scheduled Procedures Name Priority Associated Diagnoses Date/Ti [...] Not on filedocumented as of this encounter Procedures Procedure Name Priority Date/Time Associated Diagnosis Comments DERM EXAM - DERM (IMAGES ONLY, NO REPORT) Routine 12/09/2024 1:14 PM EST Skin exam, screening for cancer Ephelides Multiple nevi documented in this encounter Results * DERM EXAM - DERM (IMAGES ONLY, NO REPORT) (12/09/2024 1:14 PM EST) Narrative Scheduling, Silent - 12/09/2024 1:14 PM EST This is an imaging study not interpreted or resulted by a [facility] or [facility] contracted radiologist. Dary Chaves PA-C RADIOLOGY (RAD GENERAL ) Final Result documented in this encounter Visit Diagnoses Diagnosis Multiple nevi- Primary Benign neoplasm of skin, site unspecified Skin exam, screening for cancer Screening for malignant neoplasm of the skin Ephelides Other dyschromia documented in this encounter Additional Health Concerns Active Problems Noted Date Diagnosed Date OB Reminders 06/22/2024 documented as of this encounter Care Teams Gasoline Power Shovel Operator Relationship Specialty Start Date End Date Felicitas Masterson DO [address] [place] [address] PCP - General Family Medicine 04/22/23 documented as of this encounter
--- OUTSIDE RECORDS SUMMARY | 2025-01-10 18:49 | External Medical Summary | Summary of Care ---
Author Name Unknown Organization [facility] Address [address] [place] [address] Phone [phone] Care Team Providers Care Internet Merchant Name Role Phone Felicitas Masterson Ivy Primary Care Provider Encounter Details Date Type Department Care Team (Latest Contact Info) Description 12/09/2024 1:14 PM EST - 12/09/2024 11:59 PM EST Hospital Encounter Radiology Film File [address] [place] [address] Arrived Discharge Disposition: Home - Self Care Allergies No known active allergiesdocumented as of this encounter (statuses as of 12/10/2024) Medications Sertraline HCl 50 MG Oral Tablet [...] as of this encounter (statuses as of 12/10/2024) Active Problems Problem Noted Date Diagnosed Date Rh negative status during 06/23/2024 Supervision of normal first 06/22/2024 Anxiety during 06/22/2024 Overview (06/22/2024): Sertraline, weekly therapy Anxiety Anemia Estimated Date of Delivery Comme nts Yes 01/25/2025 Based on last me nstrual period of 04/20/2024 (Exact Date) documented as of this encounter (statuses as of 12/10/2024) Social History Tobacco Use Types Packs/Day Years [...] money to get more. Never true 09/06/2024 [place] Depression Scale Answer Date Recorded [place] Depression Scale Total 13 06/22/2024 The thought [...] 12/22/2024 2:15 PM EST Office Visit Gynecology/Obstetrics [facility] [address] [place] [address] Concepcion Sauceda CRNP [address] [place] [address] 12/27/2025 2:20 PM EST Office Visit [address] [place] [phone] Dary Chaves PA-C [address] [place] [address] [place] [phone] Scheduled Procedures Name Priority Associated Diagnoses Date/Ti [...] study not interpreted or resulted by a [facility] or [facility] contracted radiologist. Dary Chaves PA-C RADIOLOGY (RAD GENERAL ) Final Result documented in this encounter Additional Health Concerns Active Problems Noted Date Diagnosed Date OB Reminders 06/22/2024 documented as of this encounter Care Teams Internet Merchant Relationship Specialty Start Date End Date Felicitas Masterson DO [address] [place] [address] PCP - General Family Medicine 04/22/23 documented as of this encounter
--- OUTSIDE RECORDS SUMMARY | 2025-01-10 18:49 | External Medical Summary | Summary of Care ---
Author Name Unknown Organization [facility] Address [address] [place] [address] Phone [phone] Care Team Providers Care Brooch Maker Novelty Name Role Phone Felicitas Masterson Ivy Primary Care Provider Reason for Visit * Reason Comments Return Visit Encounter Details Date Type Department Care Team (Late st Contact Info) Description 11/23/2024 1:30 PM EST Office Visit Gynecology/Obstetric s [facility] [address] [place] [address] Concepcion Sauceda CRNP [address] [place] [address] Encounter for supervision of normal first in third trimester*; Anxiety during ; Rh negative status during in third trimester Allergies No known active allergiesdocumented as of this encounter (statuses as of 11/23/2024) Medications Sertraline HCl 50 MG Oral Tablet (Zoloft) TAKE 1 TABLET BY MOUTH EVERY MORNING 90 Tablet 3 06/14/2024 Active 28-0.8 MG Oral Tablet Take by mouth. Active Magnesium 250 MG Oral Tablet Take 1 Tablet by mouth in the morning. Active Calcium 200 MG Oral Tablet Take 200 mg by mouth in the morning. Active documented as of this encounter (statuses as of 11/23/2024) Active Problems Problem Noted Date Diagnosed Date Rh negative status during 06/23/2024 Supervision of normal first 06/22/2024 Anxiety during 06/22/2024 Overview (06/22/2024): Sertraline, weekly therapy Anxiety Anemia Estimated Date of Delivery Comme nts Yes 01/25/2025 Based on last me nstrual period of 04/20/2024 (Exact Date) documented as of this encounter (statuses as of 11/23/2024) Social History Tobacco Use Types Packs/Day Years [...] money to get more. Never true 09/06/2024 [place] Depression Scale Answer Date Recorded [place] Depression Scale Total 13 06/22/2024 The thought [...] Sign Reading Time Taken Comments Blood Pressure 124/66 11/23/2024 1:25 PM EST Pulse - - Temperature - - Respiratory Rate - - Oxygen Saturation - - Inhaled Oxygen Concentration - - Weight 94.5 kg (208 lb 6.4 oz) 11/23/2024 1:25 P M EST Height - - Body Mass Index 29.9 08/17/2024 8:50 AM EDT documented in this encounter Progress Notes * Concepcion Sauceda CRNP - 11/23/2024 1:43 PM EST 31w Noticing floaters occasionally. BP fine. No other concerns. Baby is active. No contractions, bleeding, LOF. SLOAN Stone * Ariana Marino CMA - 11/23/2024 1:25 PM EST 31w0d Having "floaters" in eyes. Does go away. Increase in clear discharge. documented in this encounter Plan of Treatment Upcoming Encounters Date Type Department Care Team (Late st Contact Info) Description 12/09/2024 1:00 PM EST Office [address] [place] [phone] Dary Chaves PA-C [address] [place] [address] [place] [phone] Scheduled Procedures Name Priority Associated Diagnoses Date/Ti [...] documented as of this encounter Care Teams Brooch Maker Novelty Relationship Specialty Start Date End Date Felicitas Masterson DO [address] [place] [address] PCP - General Family Medicine 04/22/23 documented as of this encounter
--- OUTSIDE RECORDS SUMMARY | 2025-01-10 18:49 | External Medical Summary | Summary of Care ---
Author Name Unknown Organization [facility] Address [address] [facility] [place] [address] Phone [phone] Care Team Providers Care Painter Assistant Name Role Phone Zelalem Polk [place] Primary Care Provider Encounter Details Date Type Department Care Team (Late st Contact Info) Description 11/22/2024 Telephone Gynecology/Obstetrics [facility] [address] [place] [phone] Bernabe Reid MD [address] [place] [phone] Allergies No known active allergiesdocumented as of this encounter (statuses as of 11/22/2024) Medications Sertraline HCl 50 MG Oral Tablet [...] as of this encounter (statuses as of 11/22/2024) Active Problems Problem Noted Date Diagnosed Date Rh negative status during 06/23/2024 Supervision of normal first 06/22/2024 Anxiety during 06/22/2024 Overview (06/22/2024): Sertraline, weekly therapy Anxiety Anemia Estimated Date of Delivery Comme nts Yes 01/25/2025 Based on last me nstrual period of 04/20/2024 (Exact Date) documented as of this encounter (statuses as of 11/22/2024) Social History Tobacco Use Types Packs/Day Years [...] money to get more. Never true 09/06/[address] Depression Scale Answer Date Recorded [address] Depression Scale Total 13 06/22/2024 The thought [...] encounter Miscellaneous Notes * Telephone Encounter - [place] Vincent LPN - 11/22/2024 12:37 PM EST Pt calling in with concerns of vision changes - feeling of unfocused. Denies THOMAS or unexplained swelling. Denies RUQ pain. BP's in office have been within normal limits. + movement Feels has been extra tired recently Has not had recent eye exam Advised pt to rest, push fluids. Advised to call back with new or worsening symptoms.Reviewed number to call after hours if needed. Pt has follow up appt tomorrow in office. Pt verbalized understanding. documented in this encounter Plan of Treatment Upcoming Encounters Date Type Department Care Team (Late st Contact Info) Description 11/23/2024 1:30 PM EST Office Visit Gynecology/Obstetrics [facility] [address] [place] [address] Concepcion Sauceda CRNP [address] [place] [address] 12/09/2024 1:00 PM EST Office [address] [place] [phone] Dary Chaves PA-C [address] [place] [address] [place] [phone] Scheduled Procedures Name Priority Associated Diagnoses Date/Ti [...] documented as of this encounter Care Teams Painter Assistant Relationship Specialty Start Date End Date Felicitas Masterson DO [address] [place] [facility] [place] [address] PCP - General Family Medicine 04/22/23 documented as of this encounter
--- OUTSIDE RECORDS SUMMARY | 2025-01-10 18:49 | External Medical Summary | Summary of Care ---
Author Name Unknown Organization [facility] Address [address] [place] [address] Phone [phone] Care Team Providers Care Traveling Passenger Agent Name Role Phone Felicitas Masterson Ivy PALOMARES Primary Care Provider Reason for Visit * Reason Comments Return Visit Encounter Details Date Type Department Care Team (Late st Contact Info) Description 12/15/2024 1:15 PM EST Office Visit Gynecology/Obstetric s [facility] [address] [place] [address] Concepcion Sauceda CRNP [address] [place] [address] Encounter for supervision of normal first in third trimester*; Anxiety during ; Rh negative, antepartum; Vaginal discharge Allergies No known active allergiesdocumented as of this encounter (statuses as of 12/15/2024) Medications Sertraline HCl 50 MG Oral Tablet [...] as of this encounter (statuses as of 12/15/2024) Active Problems Problem Noted Date Diagnosed Date Rh negative status during 06/23/2024 Supervision of normal first 06/22/2024 Anxiety during 06/22/2024 Overview (06/22/2024): Sertraline, weekly therapy Anxiety Anemia Estimated Date of Delivery Comme nts Yes 01/25/2025 Based on last me nstrual period of 04/20/2024 (Exact Date) documented as of this encounter (statuses as of 12/15/2024) Social History Tobacco Use Types Packs/Day Years [...] money to get more. Never true 09/06/2024 [place] Depression Scale Answer Date Recorded [place] Depression Scale Total 13 06/22/2024 The thought [...] Sign Reading Time Taken Comments Blood Pressure 120/68 12/15/2024 1:15 PM EST Pulse - - Temperature - - Respiratory Rate - - Oxygen Saturation - - Inhaled Oxygen Concentration - - Weight 98.7 kg (217 lb 9.6 oz) 12/15/2024 1:15 P M EST Height - - Body Mass Index 31.22 08/17/2024 8:50 AM EDT documented in this encounter Progress Notes * Concepcion Sauceda CRNP - 12/15/2024 1:25 PM EST 34w1d Here for acute visit. C/o vaginal discharge of varying degree with an odor. Vaginal culture obtained. Reed Fixer Documentation Provider requested knowledge analyst. Name of knowledge analyst: Ariana She reports good movement. Denies bleeding or LOF. SLOAN Stone * Ariana Marino CMA - 12/15/2024 1:15 PM EST Patient present today for possible infection. Yellow/greeen discharge, itching and fishy odor. Ongoing for about a week. documented in this encounter Plan of Treatment Upcoming Encounters Date Type Department Care Team (Late st Contact Info) Description 12/22/2024 2:15 PM EST Office Visit Gynecology/Obstetrics [facility] [address] [place] [address] Concepcion Sauceda CRNP [address] [place] [address] 12/27/2025 2:20 PM EST Office Visit [address] [place] [phone] Dary Chaves PA-C [address] [place] [address] [place] [phone] Scheduled Orders Name Type Priority Associated Diagnoses Orde r Schedule VAGINOSIS PANEL, PCR Lab Routine Vaginal discharge Expected: 12/15/2024, Expires: 12/15/2025 Scheduled Procedures Name Priority Associated Diagnoses Date/Ti [...] Supervision of normal first Anxiety during Rh negative, antepartum Rhesus isoimmunization affecting management of mother, antepartum condition Vaginal discharge Leukorrhea, not specified as infective documented in this encounter Additional Health Concerns Active Problems Noted Date Diagnosed Date OB Reminders 06/22/2024 documented as of this encounter Care Teams Traveling Passenger Agent Relationship Specialty Start Date End Date Felicitas Masterson DO [address] [place] [address] PCP - General Family Medicine 04/22/23 documented as of this encounter
--- OUTSIDE RECORDS SUMMARY | 2025-01-10 18:49 | External Medical Summary | Summary of Care ---
Author Name Unknown Organization [facility] Address [address] [facility] [place] [address] Phone [phone] Care Team Providers Care Pump And Still Operator Name Role Phone Zelalem Polk Ivy PALOMARES Primary Care Provider Encounter Details Date Type Department Care Team (Late st Contact Info) Description 12/08/2024 Telephone Gynecology/Obstetrics [facility] [address] [place] [id number] Bernabe Reid MD [address] [place] [phone] Allergies No known active allergiesdocumented as of this encounter (statuses as of 12/08/2024) Medications Sertraline HCl 50 MG Oral Tablet [...] as of this encounter (statuses as of 12/08/2024) Active Problems Problem Noted Date Diagnosed Date Rh negative status during 06/23/2024 Supervision of normal first 06/22/2024 Anxiety during 06/22/2024 Overview (06/22/2024): Sertraline, weekly therapy Anxiety Anemia Estimated Date of Delivery Comme nts Yes 01/25/2025 Based on last me nstrual period of 04/20/2024 (Exact Date) documented as of this encounter (statuses as of 12/08/2024) Social History Tobacco Use Types Packs/Day Years [...] money to get more. Never true 09/06/2024 [place] Depression Scale Answer Date Recorded [place] Depression Scale Total 13 06/22/2024 The thought [...] encounter Miscellaneous Notes * Telephone Encounter - Keisha Persaud LPN - 12/08/2024 12:23 PM EST Pt called back and said she had 120 movements in the past hour. I told asked again 20? She said no 120 movements. I told her I think baby is good and to call us if she has any other concerns. Pt verbalized understanding. * Telephone Encounter - Keisha Persaud LPN - 12/08/2024 11:16 AM EST Pt called in with concerns of decreased movements. Pt did a kick count at 5am and she got 10 kicks.pt fell asleep and woke back up a couple hours ago and has not felt baby move much. I asked pt if she has ate or drank anything. Pt said she just got done eating and she is currently drinking juice. While she was saying that she felt baby move. I instructed pt to finish her juice and do a kick countover the next hour and call us back. Pt verbalized understanding and was happy that she was feelingbaby move. documented in this encounter Plan of Treatment Upcoming Encounters Date Type Department Care Team (Late st Contact Info) Description 12/09/2024 1:00 PM EST Office Visit [address] [place] [phone] Dary Chaves PA-C [address] [place] [address] [place] [address] 12/22/2024 2:15 PM EST Office Visit Gynecology/Obstetrics Damari Carney [address] [place] [address] Concepcion Sauceda CRNP [address] [place] [address] Scheduled Procedures Name Priority Associated Diagnoses Date/Ti [...] documented as of this encounter Care Teams Pump And Still Operator Relationship Specialty Start Date End Date Felicitas Masterson DO [address] [place], [place] [address] PCP - General Family Medicine 04/22/23 documented as of this encounter
--- OUTSIDE RECORDS SUMMARY | 2025-01-10 18:49 | External Medical Summary | Summary of Care ---
Author Name Unknown Organization [facility] Address [address] [place] [address] Phone [phone] Care Team Providers Care Head Nurse Name Role Phone Felicitas Masterson Ivy Primary Care Provider Reason for Visit * Reason Comments Outpatient Testing Encounter Details Date Type Department Care Team (Late st Contact Info) Description 12/04/2024 12:50 PM EST Laboratory Laboratory, [facility] [address] [place] [address] [facility] [address] [place] [address] Pruritus of in third trimester Allergies No known active allergiesdocumented as of this encounter (statuses as of 12/04/2024) Medications Sertraline HCl 50 MG Oral Tablet [...] as of this encounter (statuses as of 12/04/2024) Active Problems Problem Noted Date Diagnosed Date Rh negative status during 06/23/2024 Supervision of normal first 06/22/2024 Anxiety during 06/22/2024 Overview (06/22/2024): Sertraline, weekly therapy Anxiety Anemia Estimated Date of Delivery Comme nts Yes 01/25/2025 Based on last me nstrual period of 04/20/2024 (Exact Date) documented as of this encounter (statuses as of 12/04/2024) Social History Tobacco Use Types Packs/Day Years [...] money to get more. Never true 09/06/2024 [place] Depression Scale Answer Date Recorded [place] Depression Scale Total 13 06/22/2024 The thought [...] Care Team (Late st Contact Info) Description 12/07/2024 10:00 AM EST Office Visit Gynecology/Obstetrics [facility] [address] [facility] [place] [address] Concepcion Sauceda CRNP [address] [place] [address] 12/09/2024 1:00 PM EST Office Visit Dermatology, [facility] [address] [facility] [place] [phone] Dary Chaves PA-C [address] [place] [address] [place] [address] 12/14/2024 8:00 AM EST Office Visit Gynecology/Obstetrics [facility] [address] [facility] [place] [address] Concepcion Sauceda CRNP [address] [place] [address] Pending Results Name Type Priority Associated Diagnoses Date /Time HEPATIC FUNCTION PANEL Lab Routine Pruritus of in third trimester 12/04/2024 12:39 PM EST BILE ACIDS, FRACTIONATED AND TOTAL Lab Routine Pruritus of in third trimester 12/04/2024 12:39 PM EST Scheduled Procedures Name Priority Associated [...] documented as of this encounter Care Teams Head Nurse Relationship Specialty Start Date End Date Felicitas Masterson DO [address] [place] [address] PCP - General Family Medicine 04/22/23 documented as of this encounter
--- OUTSIDE RECORDS SUMMARY | 2025-01-10 18:49 | External Medical Summary | Summary of Care ---
Author Name Unknown Organization [facility] Address [address] [place] [address] Phone [phone] Care Team Providers Care X Ray Inspector Name Role Phone Felicitas Masterson Ivy Primary Care Provider Reason for Visit * Reason Comments Return Visit Encounter Details Date Type Department Care Team (Late st Contact Info) Description 12/07/2024 10:00 AM EST Office Visit Gynecology/Obstetric [facility] [address] [place] [address] Concepcion Sauceda CRNP [address] [place] [address] Encounter for supervision of normal first in third trimester*; Anxiety during ; Rh negative, antepartum Allergies No known active allergiesdocumented as of this encounter (statuses as of 12/07/2024) Medications Sertraline HCl 50 MG Oral Tablet [...] as of this encounter (statuses as of 12/07/2024) Active Problems Problem Noted Date Diagnosed Date Rh negative status during 06/23/2024 Supervision of normal first 06/22/2024 Anxiety during 06/22/2024 Overview (06/22/2024): Sertraline, weekly therapy Anxiety Anemia Estimated Date of Delivery Comme nts Yes 01/25/2025 Based on last me nstrual period of 04/20/2024 (Exact Date) documented as of this encounter (statuses as of 12/07/2024) Social History Tobacco Use Types Packs/Day Years [...] money to get more. Never true 09/06/2024 [place] Depression Scale Answer Date Recorded [place] Depression Scale Total 13 06/22/2024 The thought [...] Sign Reading Time Taken Comments Blood Pressure 118/68 12/07/2024 10:06 AM EST Pulse - - Temperature - - Respiratory Rate - - Oxygen Saturation - - Inhaled Oxygen Concentration - - Weight 98 kg (216 lb) 12/07/2024 10:06 AM EST Height - - Body Mass Index 30.99 08/17/2024 8:50 AM EDT documented in this encounter Progress Notes * Concepcion Sauceda CRNP - 12/07/2024 10:30 AM EST 33w Discussed heartburn, meds safe in . Messed office last week with concerns of itching. Labs ordered for ICP, still awaiting bile acids. Generalized itching continues. Advised to notify office of changes. Baby is active. No contractions or bleeding. Declines RSV vaccine. SLOAN Stone * Ariana Marino CMA - 12/07/2024 10:06 AM EST 33w0d Denies any concerns. documented in this encounter Plan of Treatment Upcoming Encounters Date Type Department Care Team (Late st Contact Info) Description 12/09/2024 1:00 PM EST Office Visit [address] [place] [phone] Dayr Chaves PA-C [address] [place] [address] [place] [address] 12/22/2024 2:15 PM EST Office Visit Gynecology/Obstetrics Damari Carney [address] [place] [address] Concepcion Sauceda CRNP [address] [place] [address] Scheduled Procedures Name Priority Associated Diagnoses Date/Ti [...] Author Reminders Care Plan OB Reminders No Mamit, Provider documented as of this encounter Medical Devices Not on filedocumented as of this encounter Visit Diagnoses Diagnosis Encounter for supervision of normal first in third trimester- Primary Supervision of normal first Anxiety during Rh negative, antepartum Rhesus isoimmunization affecting management of mother, antepartum condition documented in this encounter Additional Health Concerns Active Problems Noted Date Diagnosed Date OB Reminders 06/22/2024 documented as of this encounter Care Teams X Ray Inspector Relationship Specialty Start Date End Date Felicitas Masterson DO [address] [place], [place] [address] PCP - General Family Medicine 04/22/23 documented as of this encounter
--- OUTSIDE RECORDS SUMMARY | 2025-01-10 18:49 | External Medical Summary ---
Author Name Unknown Address Unknown Organization K01:[facility] [place] [address] [facility] [address] Laboratory Report Ordering Provider Test Date Status LIVE JEREZ 12/15/2024 13:45:43 Final Observation Date Value Abnormality Reference (Units ) Status Bacterial vaginosis [Interpretation] in Vaginal fluid Qualitative 12/15/2024 13:45:43 Negative Negative Final Negative for Bacterial Vagin osis. Correlate results with other clinical findings. Diana sp DNA [Presence] in Vaginal fluid by Probe 12/15/2024 13:45:43 Negative Negative Final No Diana species group RNA detected. Correlate results with other clinical findings. Diana glabrata RNA [Presen ce] in Vaginal fluid by ROSITA with probe detection 12/15/2024 13:45:43 Negative Negative Final No Diana glabrata RNA dete cted. Correlate results with other clinical findings. Trichomonas vaginalis DNA [P resence] in Vaginal fluid by Probe 12/15/2024 13:45:43 Negative Negative Final No Trichomonas vaginalis RNA detected. Performing Location [facility] - [address] [facility] [address]
--- OUTSIDE RECORDS SUMMARY | 2025-01-10 18:49 | External Medical Summary | Summary of Care ---
Author Name Unknown Organization [facility] Address [address] [place] [address] Phone [phone] Care Team Providers Care Blanket Winder Operator Name Role Phone Felicitas Masterson Ivy PALOMARES Primary Care Provider Reason for Visit * Reason Comments Return Visit Encounter Details Date Type Department Care Team (Late st Contact Info) Description 12/15/2024 1:15 PM EST Office Visit Gynecology/Obstetric s [facility] [address] [place] [address] Concepcion Sauceda CRNP [address] [place] [address] Encounter for supervision of normal first in [...] money to get more. Never true 09/06/2024 [place] Depression Scale Answer Date Recorded [place] Depression Scale Total 13 06/22/2024 The thought [...] degree with an odor. Vaginal culture obtained. 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 Name of assembler truck trailer: Ariana She reports good movement. Denies bleeding [...] Carney [address] [place] [address] Concepcion Sauceda CRNP [address] [place] [address] 12/27/2025 2:20 PM EST Office [facility] [address] [facility] [place] [phone] Dary Chaves PA-C [address] [place] [address] [place] [address] Pending Results Name Type Priority Associated Diagnoses Date /Time VAGINOSIS PANEL, PCR Lab Routine Vaginal discharge 12/15/2024 1:45 PM EST Scheduled Orders Name Type Priority Associated [...] documented as of this encounter Care Teams Blanket Winder Operator Relationship Specialty Start Date End Date Felicitas Masterson DO [address] [place] [address] PCP - General Family Medicine 04/22/23 documented as of this encounter
--- OUTSIDE RECORDS SUMMARY | 2025-01-10 18:49 | External Medical Summary | Summary of Care ---
Author Name Unknown Organization [facility] Address [address] [facility] [place] [address] Phone [phone] Care Team Providers Care Dining Car Steward Name Role Phone Felicitas Masterson DO Primary Care Provider Reason for Visit * Reason Comments NEW PATIENT New pt. Here for ful l skin exam. No concerns. * Evaluate & Treat - Unlimited Visits (Within 30 days (routine)) - Authorized Specialty Diagnoses / Procedures Referred By Delphine franks Referred To Contact Dermatology Diagnoses Atypical nevi Felicitas Masterson DO [address] [place] [address] Phone: tel: fax: Referral ID Status Reason Start Date Expiration Date Visits Requested Visits Authorized [id number] Authorized Specialty Services Required 05/04/[phone] Encounter Details Date Type Department Care Team (Late st Contact Info) Description 12/09/2024 1:00 PM EST Office [facility] [address] [facility] [place] [phone] Dary Chaves PA-C [address] [place] [address] [place] [address] Multiple nevi*; Skin exam, screening for cancer; [...] money to get more. Never true 09/06/2024 [place] Depression Scale Answer Date Recorded [place] Depression Scale Total 13 06/22/2024 The thought [...] zinc. Product examples; Think sport, Think baby, [place], [employer], [employer], [place] baby. "Baby" products can be used for all ages. documented in this encounter Progress Notes * Jamal Mohamud MD - 12/10/2024 7:31 AM EST I have seen and examined the patient via teledermatology review of chart note and photos with Dary Chaves PA-C. I have reviewed and agree with the assessment and plan. * Dary Chaves PA-C - 12/09/2024 1:00 [...] No new or changing lesions, per pt. Space Systems Operations Manager Documentation Patient offered cigarette paper tester and declined. REVIEW OF SYSTEMS: SKIN: No [...] NONE Reviewed, same day as visit, 0 [facility] Dermatology lab work(s)/pathology report(s) as well as [...] treatment. Dary Chaves PA-C 12/09/2024 1:[address] [place] [phone] documented in this encounter Nursing Notes * [...] Visit Gynecology/Obstetrics Damari Carney [address] [place] [address] Concepcion Sauceda CRNP [address] [place] [address] 12/27/2025 2:20 PM EST Office Visit [address] [place] [phone] Dary Chaves PA-C [address] [place] [address] [place] [address] Scheduled Procedures Name Priority Associated Diagnoses Date/Ti [...] interpreted or resulted by a [facility] radiologist. us Dary Chaves PA-C RADIOLOGY (RAD GENERAL ) Final Result documented in this encounter Visit Diagnoses Diagnosis Multiple nevi- Primary Benign neoplasm of skin, site unspecified Skin exam, screening for cancer Screening for malignant neoplasm of the skin Ephelides Other dyschromia documented in this encounter Additional Health Concerns Active Problems Noted Date Diagnosed Date OB Reminders 06/22/2024 documented as of this encounter Care Teams Dining Car Steward Relationship Specialty Start Date End Date Felicitas Masterson DO [address] [place] [address] PCP - General Family Medicine 04/22/23 documented as of this encounter
--- OUTSIDE RECORDS SUMMARY | 2025-01-10 18:49 | External Medical Summary ---
Author Name Unknown Address Unknown Organization : Laboratory Report Ordering Provider Test Date Status ASTER BEDOLLA 12/04/2024 12:39:12 Final Observation Date Value Abnormality Reference (Units ) Status Bile acid [Moles/volume] in Serum --fasting 12/04/2024 12:39:12 SEE BELOW Final TESTS--------- ----RESULTS--------UNITS--REF. RANGE---
Cholic Acid 1.5 umol/L < OR = 1.8
Deoxycholic Acid 1.0 umol/L < OR = 2.4
Chenodeoxycholic Acid 1.7 umol/L < OR = 3.1
Total Bile Acids 4.2 umol/L < OR = 6.8
This test was developed and its analytical
performance characteristics have been determined
by [facility]. It has not been cleared or
approved by FDA. This assay has been validated
pursuant to the CLIA regulations and is used for
clinical purposes.
Test performed by [facility]
[address],
[place] [address]

Bi Data Modeler: Lillie Brennan MD,PHD,KARON Performing Location
--- OUTSIDE RECORDS SUMMARY | 2025-01-10 18:50 | External Medical Summary | Summary of Care ---
Author Name Unknown Organization [facility] Address [address] [place] [address] Phone [phone] Care Team Providers Care Spinning Frame Fixer Name Role Phone Felicitas Masterson Ivy PALOMARES Primary Care Provider Reason for Visit * Reason Comments Acute Pulsating in R ear p er pt Encounter Details Date Type Department Care Team (Late st Contact Info) Description 09/06/2024 3:20 PM EDT Office Visit Family Practice [facility] [address] [facility] [place] [address] Alondra Baugh CRNP [address] [place] [address] Pulsatile tinnitus of right ear* Allergies No known active allergiesdocumented as of this encounter (statuses as of 09/06/2024) Medications Medication Sig Dispensed Refills Start Date End Date Status Sertraline HCl 50 MG Oral Tablet (Zoloft) TAKE 1 TABLET BY MOUTH EVERY MORNING 90 Tablet 3 06/14/2024 Active 28-0.8 MG Oral Tablet Take by mouth. Active Magnesium 250 MG Oral Tablet Take 1 Tablet by mouth in the morning. Active Calcium 200 MG Oral Tablet Take 200 mg by mouth in the morning. Active documented as of this encounter (statuses as of 09/06/2024) Active Problems Problem Noted Date Diagnosed Date Rh negative status during 06/23/2024 Supervision of normal first 06/22/2024 Anxiety during 06/22/2024 Overview: Sertraline, weekly therapy Anxiety Anemia Estimated Date of Delivery Comme nts Yes 01/25/2025 Based on last me nstrual period of 04/20/2024 (Exact Date) documented as of this encounter (statuses as of 09/06/2024) Social History Tobacco Use Types Packs/Day Years [...] the money to buy more. Never true 04/20/20 24 Within the past 12 months, t he food you bought just didn't last and you didn't have money to get more. Never true 04/20/2024 [place] Depression Scale Answer Date Recorded [place] Depression Scale Total 13 06/22/2024 The thought of harming myself has occurred to me . Never 06/22/2024 Childcare Answer Date Recorded Do you feel overwhelmed with taking care of a child, family member or friend? No 04/20/2024 Does your family need help f inding childcare? (Household - for ages 0-17 years) Not on file 04/20/2024 Clothing Answer Date Recorded Have you been unable to get clothing when it was really needed? No 04/20/2024 Is your family able to get c lothes or diapers when needed? (Household - for ages 0-17 years) Not on file 04/20/2024 Personal Safety Answer Date Recorded Do you feel unsafe or have concerns for your saf ety? No 04/20/2024 Do you have concerns for you r family's safety? (Household - for ages 0-17 years) Not on file 04/20/2024 Utilities Answer Date Recorded Do you have trouble paying y our heating, water, or electric bill? No 04/20/2024 Is your family able to pay t he heat, water, or electric bill? (Household - for ages 0-17 years) Not on file 04/20/2024 Does your family have access to good internet? (Household - for ages 0-17 years) Not on file 04/20/2024 Employment Status Answer Date Recorded Are you unemployed or without regular income? No 04/20/2024 Does the household have a re gular source of income? (Household - for ages 0-17 years) Not on file 04/20/2024 Social Connections Answer Date Recorded How often do you feel lonely or isolated from those around you? Sometimes 04/20/2024 Financial Resource Strain Answer Date R ecorded Do you have any trouble payi ng for your medications, or do you think you might in the future? No 04/20/2024 Does your family have troubl e paying for medicine? (Household - for ages 0-17 years) Not on file 04/20/2024 Transportation Needs Answer Date Record ed READ ONLY Do you have troubl e getting a ride to medical visits or work? Never True 04/20/2024 Does your family have a hard time getting a ride to doctors visits? (Household - for ages 0-17 years) Not on file 04/20/2024 Has lack of transportation k ept you from medical appointments, meetings, work, or from getting things needed for daily living? Check all that apply. (Adult - for ages 18 years and over) Not on file 04/20/2024 Do you (or your family) have trouble finding or paying for a ride (transportation)? (Household - for ages 0-17 years) Not on file 04/20/2024 Housing Stability Answer Date Recorded Do you currently live in a s helter or have no steady place to sleep at night? Yes 04/20/2024 READ ONLY Do you think you a re at risk of becoming homeless? No 04/20/2024 Does your family worry about paying for your home or becoming homeless? (Household - for ages 0-17 years) Not on file 0 04/20/2024 Are you homeless or worried that you might be in the future? (Adult - for ages 18 years and over) Not on file Are you (or your family) nan eless or worried that you might be in the future? (Household - for ages 0-17 years) Not on file Food Insecurity Answer Date Recorded Do you need food for this week? No 04/20/2024 Are you able to get enough f ood for your family? (Household - for ages 0-17 years) Not on file 04/20/2024 Does your family need food t his week? (Household - for ages 0-17 years) Not on file 04/20/2024 Do you always have enough fo od for your family? (Household - for ages 0-17 years) Not on file 04/20/2024 Estimated Date of Delivery Comme nts Yes 01/25/2025 Based on last me nstrual period of 04/20/2024 (Exact Date) Sex and Gender Information Value Date Recorded Sex Assigned at Not on file Gender Identity Not on file Sexual Orientation Not on file Job Start Date Occupation Industry Not on file Not on file Not on file documented as of this encounter Last Filed Vital Signs Vital Sign Reading Time Taken Comments Blood Pressure 126/54 09/06/2024 3:19 PM EDT Pulse 94 09/06/2024 3:19 PM EDT Temperature 36.7 C (98 F) 09/06/2024 3:19 PM EDT Respiratory Rate - - Oxygen Saturation 99% 09/06/2024 3:19 PM EDT Inhaled Oxygen Concentration - - Weight - - Height - - Body Mass Index - - documented in this encounter Progress Notes * Alondra Baugh CRNP - 09/06/2024 3:35 PM EDT Images from the original note were not included. History of Present Illness Verona Polk is a 29 year old female that presents for Acute (Pulsating in R ear per pt ) HPI Here for R-sided pulsating whooshing sound for last several weeks 20 weeks Worse with activity Gradually worsening - had been intermittent but now more constant Very loud if she lays on left side She had tubes in her ears as child and some baseline tinnitus before She does have some sinus congestion and a feeling of fluid in her R ear Denies new/worsening headaches, vision changes, elevated blood pressure, weakness, loss of balance,severe swelling of hands or legs Current Outpatient Medications Medication Sig Dispense Refill Calcium 200 MG Oral Tablet Take 200 mg by mouth in the morning. Magnesium 250 MG Oral Tablet Take 1 Tablet by mouth in the morning. 28-0.8 MG Oral Tablet Take by mouth. Sertraline HCl 50 MG Oral Tablet (Zoloft) TAKE 1 TABLET BY MOUTH EVERY MORNING 90 Tablet 3 No current facility-administered medications for this visit. Physical Exam Vitals: 09/06/24 1519 Temp: 36.7 C (98 F) Pulse: 94 SpO2: 99% BP: 126/54 Physical Exam Vitals reviewed. Constitutional: General: She is not in acute distress. HENT: Head: Normocephalic and atraumatic. Right Ear: Tympanic membrane, ear canal and external ear normal. Left Ear: Tympanic membrane, ear canal and external ear normal. Ears: Comments: + TM scarring bilaterally Nose: Congestion (mild) present. Mouth/Throat: Mouth: Mucous membranes are moist. Pharynx: No oropharyngeal exudate or posterior oropharyngeal erythema. Eyes: Extraocular Movements: Extraocular movements intact. Conjunctiva/sclera: Conjunctivae normal. Pupils: Pupils are equal, round, and reactive to light. Cardiovascular: Rate and Rhythm: Normal rate and regular rhythm. Heart sounds: Normal heart sounds. Pulmonary: Effort: Pulmonary effort is normal. Breath sounds: Normal breath sounds. Musculoskeletal: Cervical back: Neck supple. Lymphadenopathy: Cervical: No cervical adenopathy. Skin: General: Skin is warm and dry. Neurological: Mental Status: She is alert and oriented to person, place, and time. Assessment and Plan Pulsatile tinnitus of right ear I do suspect this is related and/or from allergic rhinitis BP WNL, no CRENSHAW Encourage trial of zyrtec or claritin OTC to see if this helps with congestion and ear complaints Discussed red flags, indications for follow up Wrap-Up Follow Up: Return if symptoms worsen or fail to improve. Time: I spent a total of 20-29 minutes (exact time 20 mins) on the date of service in preparation, delivery, and documentation of the care provided to Verona Polk excluding any time spent in the performance of separately billed services. documented in this encounter Nursing Notes * Camille Rajan LPN - 09/06/2024 3:17 PM EDT The patient has been properly identified by confirmation of name and date of . Chief Complaint Patient presents with Acute Pulsating in R ear per pt Noticed it 3 weeks ago-- starting to get worse. Is a constant thing. No ringing, just pulse being heard in R ear. Denies CP, dizziness, lightheaded, SOB. No ear pain or neck pain. Pt is 20 weeks . Did ask OBGYN about this, they did not relate this to her . documented in this encounter Plan of Treatment Upcoming Encounters Date Type Department Care Team (Late st Contact Info) Description 09/16/2024 8:30 AM EDT Imaging Radiology [facility] [address] [facility] [place] [address] 09/16/2024 10:15 AM EDT Office Visit [facility] [place] [address] Concepcion Sauceda CRNP [address] [place] [address] 12/09/2024 1:00 PM EST Office Visit [address] [place] [address] Dary Chaves PA-C [address] [place] [address] [place] [address] Scheduled Procedures Name Priority Associated Diagnoses Date/Ti [...] as of this encounter Visit Diagnoses Diagnosis Pulsatile tinnitus of right ear- Primary documented in this encounter Additional Health Concerns Active Problems Noted Date Diagnosed Date OB Reminders 06/22/2024 documented as of this encounter Care Teams Spinning Frame Fixer Relationship Specialty Start Date End Date Felicitas Masterson DO [address] [place] [address] PCP - General Family Medicine 04/22/23 documented as of this encounter
--- OUTSIDE RECORDS SUMMARY | 2025-01-10 18:50 | External Medical Summary ---
Author Name Unknown Address Unknown Organization [id number]:[facility] [place] [facility] - [address] [place] [address] Laboratory Report Ordering Provider Test Date Status LIVE JEREZ 11/05/2024 15:02:25 Final Observation Date Value Abnormality Reference (Units ) Status Nucleated erythrocytes/100 leukocytes [Ratio] in Blood by Automated count 11/05/2024 15:02:25 Final Performing Location [facility] [place] [facility] 0 - [address] [place] [address]
--- OUTSIDE RECORDS SUMMARY | 2025-01-10 18:50 | External Medical Summary | Summary of Care ---
Author Name Unknown Organization [facility] Address [address] [place] [address] Phone [phone] Care Team Providers Care Ash Collector Name Role Phone Felicitas Masterson Ivy Primary Care Provider Reason for Visit * Reason Comments Return Visit Encounter Details Date Type Department Care Team (Late st Contact Info) Description 07/20/2024 10:45 AM EDT Office Visit Gynecology/Obstetric [facility] [address] [facility] [place] [address] Dary Styles PA-C [address] [place] [address] Encounter for supervision of normal first in second trimester*; Anxiety during ; Rh negative status during in second trimester Allergies No known active allergiesdocumented as of this encounter (statuses as of 07/20/2024) Medications Medication Sig Dispensed Refills Start Date [...] as of this encounter (statuses as of 07/20/2024) Active Problems Problem Noted Date Diagnosed Date Rh negative status during 06/23/2024 Supervision of normal first 06/22/2024 Anxiety during 06/22/2024 Overview: Sertraline, weekly therapy Anxiety Anemia Estimated Date of Delivery Comme nts Yes 01/25/2025 Based on last me nstrual period of 04/20/2024 (Exact Date) documented as of this encounter (statuses as of 07/20/2024) Social History Tobacco Use Types Packs/Day Years [...] money to get more. Never true 04/20/2024 [place] Depression Scale Answer Date Recorded [place] Depression Scale Total 13 06/22/2024 The thought [...] Sign Reading Time Taken Comments Blood Pressure 116/70 07/20/2024 10:55 AM EDT Pulse - - Temperature - - Respiratory Rate - - Oxygen Saturation - - Inhaled Oxygen Concentration - - Weight 80.3 kg (177 lb) 07/20/2024 10:55 AM EDT Height - - Body Mass Index 25.4 06/22/2024 9:16 AM EDT documented in this encounter Progress Notes * Dary Styles PA-C - 07/20/2024 11:04 AM EDT Verona Polk is a 29 year old female here for her routine OB appointment at 13w0d Her Estimated Date of Delivery: 01/25/25 She reports nausea and vomiting in the mornings. Able to keep most meals down. Denies further concerns throughout the day. She has also been experiencing intermittent headaches throughout the . Denies any worsening headaches or vision changes. She notes some intermittent vaginal discharge without burning, itching, odor. REVIEW OF SYSTEMS She denies movement Denies vaginal bleeding, LOF, contractions, chest pain. PHYSICAL EXAM Filed Vitals: 07/20/24 1055 BP: 116/70 Weight: 80.3 kg (177 lb) +FHT 140s ASSESSMENT/PLAN Encounter for supervision of normal first in second trimester (Primary) Anxiety during Rh negative status during in second trimester Supervision of - reviewed NOB labs were WNLs - discussed genetic screening. Patient declines. - reassurance given regarding vaginal discharge. To monitor for any burning, itching, odor. RTO in 4 weeks Dary Styles PA-C 07/20/2024 * Ariana Marino MED ASSIST - 07/20/2024 10:55 AM EDT 13w0d Denies vaginal bleeding. + nausea/vomiting every morning documented in this encounter Plan of Treatment Upcoming Encounters Date Type Department Care Team (Late st Contact Info) Description 08/05/2024 12:30 PM EDT Imaging Radiology [facility] 2nd Floor, [place] [address] [place] [address] 08/17/2024 9:00 AM EDT Office Visit [facility]necology[facility]stetrics [facility] [place] [address] Concepcion Sauceda CRNP [address] [place] [address] 12/09/2024 1:00 PM EST Office Visit [address] [address] Dary Chaves PA-C [address] [place] [address] [place] [address] Scheduled Procedures Name Priority Associated Diagnoses Date/Ti me COLONOSCOPY FLEXIBLE PROXIMAL DIAGNOSTIC Recall Blood in stool Health Maintenance Due Date Last Done Comments DTaP,Tdap,and Td Vaccines (1 - Tdap) 2016 Hepatitis B Vaccine (1 of 3 - 19+ 3-dose series) 2016 COVID-19 Vaccine ( - 2022-2 4 season) 2023 Influenza Vaccine (FLU shot) (#1) 2024 Depression [...] Encounter for supervision of normal first in second trimester- Primary Supervision of normal first Anxiety during Rh negative status during in second trimester documented in this encounter Additional Health Concerns Active Problems Noted Date Diagnosed Date OB Reminders 06/22/2024 documented as of this encounter Care Teams Ash Collector Relationship Specialty Start Date End Date Felicitas Masterson DO [address] [place] [address] PCP - General Family Medicine 04/22/23 documented as of this encounter
--- OUTSIDE RECORDS SUMMARY | 2025-01-10 18:50 | External Medical Summary ---
Author Name Unknown Address Unknown Organization [id number] [address] [place] [address] Laboratory Report Ordering Provider Test Date Status LIVE JEREZ 11/05/2024 15:02:25 Final Observation Date Value Abnormality Reference (Units ) Status Glucose [Moles/volume] in Serum or Plasma --1 hour post 50 g glucose PO 11/05/2024 15:02:25 127 70-129 (mg/dL) Final Performing Location [facility] - [address] [place] [address]
--- OUTSIDE RECORDS SUMMARY | 2025-01-10 18:50 | External Medical Summary | Summary of Care ---
Author Name Unknown Organization [facility] Address [address] [place] [address] Phone [phone] Care Team Providers Care Piano Mechanic Apprentice Name Role Phone Felicitas Masterson Ivy Primary Care Provider Reason for Visit * Reason Comments Return Visit Encounter Details Date Type Department Care Team (Late st Contact Info) Description 09/16/2024 10:15 AM EDT Office Visit Gynecology[facility]Obst[facility] s [facility] [address] [place] [address] Concepcion Sauceda CRNP [address] [place] [address] Encounter for supervision of normal first in second trimester*; Anxiety during ; Rh negative, antepartum Allergies No known active allergiesdocumented as of this encounter (statuses as of 09/16/2024) Medications Medication Sig Dispensed Refills Start Date [...] as of this encounter (statuses as of 09/16/2024) Active Problems Problem Noted Date Diagnosed Date Rh negative status during 06/23/2024 Supervision of normal first 06/22/2024 Anxiety during 06/22/2024 Overview: Sertraline, weekly therapy Anxiety Anemia Estimated Date of Delivery Comme nts Yes 01/25/2025 Based on last me nstrual period of 04/20/2024 (Exact Date) documented as of this encounter (statuses as of 09/16/2024) Social History Tobacco Use Types Packs/Day Years [...] to get more. Never true 09/06/2024 [place] Depression Scale Answer Date Recorded [place] Depression Scale Total 13 06/22/2024 The thought [...] Sign Reading Time Taken Comments Blood Pressure 126/68 09/16/2024 10:11 AM EDT Pulse - - Temperature - - Respiratory Rate - - Oxygen Saturation - - Inhaled Oxygen Concentration - - Weight 87 kg (191 lb 12.8 oz) 09/16/2024 10:11 A M EDT Height - - Body Mass Index 27.52 08/17/2024 8:50 AM EDT documented in this encounter Progress Notes * Concepcion Sauceda CRNP - 09/16/2024 10:26 AM EDT 21w2d Questions about exercise, discussed. Discussed FM. Feeling plenty of movement, but can vary from day to day. Denies bleeding or LOF. Anatomy u/s today, +cardiac activity. SLOAN Stone * Ariana Marino CMA - 09/16/2024 10:11 AM EDT 21w2d Denies any concerns documented in this encounter Plan of Treatment Upcoming Encounters Date Type Department Care Team (Late st Contact Info) Description 10/14/2024 2:15 PM EST Office Visit Gynecology/Obstetrics [facility] [address] [place] [address] Concepcion Sauceda CRNP [address] [place] [address] 12/09/2024 1:00 PM EST [facility] [id number] [place] [address] Dary Chaves PA-C [address] [place] [address] [place] [address] Scheduled Procedures Name Priority Associated Diagnoses Date/Ti [...] documented as of this encounter Care Teams Piano Mechanic Apprentice Relationship Specialty Start Date End Date Felicitas Masterson DO [address] [place] [address] PCP - General Family Medicine 04/22/23 documented as of this encounter
--- OUTSIDE RECORDS SUMMARY | 2025-01-10 18:50 | External Medical Summary | Summary of Care ---
Author Name Unknown Organization [facility] Address [address] [place] [address] Phone [phone] Care Team Providers Care Canopy Inspector Name Role Phone Felicitas Masterson Ivy PALOMARES Primary Care Provider Reason for Visit * Reason Comments Outpatient Testing Encounter Details Date Type Department Care Team (Late st Contact Info) Description 11/05/2024 1:50 PM EST Laboratory Laboratory, [facility] [address] [place] [address] [facility] [address] [place] [address] Encounter for supervision of normal first in second trimester; Rh negative, antepartum Allergies No known active [...] third trimester 300 mcg IM ONCE 11/05/2024 11/06/2024 Active documented as of this encounter (statuses [...] money to get more. Never true 09/06/2024 [place] Depression Scale Answer Date Recorded [place] Depression Scale Total 13 06/22/2024 The thought [...] 11/23/2024 1:30 PM EST Office Visit Gynecology/Obstetrics [facility] [address] [place] [address] Concepcion Sauceda CRNP [address] [place] [address] 12/09/2024 1:00 PM EST [facility] [place] [phone] Dary Chaves PA-C [address] [place] [address] [place] [address] Pending Results Name Type Priority Associated Diagnoses Date /Time 50-G GESTATIONAL GLUCOSE, 1 HOUR Lab Routine Encounter for supervision of normal first in second trimester 11/05/2024 3:02 PM EST CBC WITH WBC DIFFERENTIAL AND ANEMIA REFLEX WORKUP Lab Routine Encounter for supervision of normal first in second trimester 11/05/2024 3:02 PM EST SYPHILIS ANTIBODY SCREEN WITH REFLEX TO RPR Lab Routine Encounter for supervision of normal first in second trimester 11/05/2024 3:02 PM EST TYPE AND SCREEN Lab Routine Rh negative, antepartum 11/05/2024 3:02 PM EST ANEMIA CBC Lab Routine Encounter for supervision of normal first in second trimester 11/05/2024 3:02 PM EST DIFFERENTIAL, AUTOMATED Lab Routine Encounter for supervision of normal first in second trimester 11/05/2024 3:02 PM EST ANEMIA REFLEX CHEMISTRY HOLD Lab Routine Encounter for supervision of normal first in second trimester 11/05/2024 3:02 PM EST SYPHILIS ANTIBODY SCREEN Lab Routine Encounter for supervision of normal first in second trimester 11/05/2024 3:02 PM EST Scheduled Procedures Name Priority Associated [...] supervision of normal first in second trimester Supervision of normal first Rh negative, antepartum Rhesus isoimmunization affecting management of mother, antepartum condition documented in this encounter Additional Health Concerns Active Problems Noted Date Diagnosed Date OB Reminders 06/22/2024 documented as of this encounter Care Teams Canopy Inspector Relationship Specialty Start Date End Date Felicitas Masterson DO [address] [place] [address] PCP - General Family Medicine 04/22/23 documented as of this encounter
--- OUTSIDE RECORDS SUMMARY | 2025-01-10 18:50 | External Medical Summary ---
Author Name Unknown Address Unknown Organization [id number]:[facility] - [address] [place] [address] Laboratory Report Ordering Provider Test Date Status LIVE JEREZ 11/05/2024 15:02:25 Final Observation Date Value Abnormality Reference (Units ) Status Folic Acid 11/05/2024 15:02:25 11.9 >4.5 (ng/ mL) Final Performing Location [facility] - [address] [place] [address]
--- OUTSIDE RECORDS SUMMARY | 2025-01-10 18:50 | External Medical Summary ---
Author Name Unknown Address Unknown Organization [id number]:[facility] - [address] [place] [address] Laboratory Report Ordering Provider Test Date Status LIVE JEREZ 11/05/2024 15:02:25 Final Observation Date Value Abnormality Reference (Units ) Status Vitamin B12 11/05/2024 15:02:25 959 200-3929 (pg/mL) Final Performing Location [facility] - [address] [place] [address]
--- OUTSIDE RECORDS SUMMARY | 2025-01-10 18:50 | External Medical Summary ---
Author Name Unknown Address Unknown Organization K01:[facility] - [address] [place] [address] Laboratory Report Ordering Provider Test Date Status LIVE JEREZ 11/05/2024 15:02:25 Final Observation Date Value Abnormality Reference (Units ) Status Ferritin 11/05/2024 15:02:25 14 13-150 (ng /mL) Final Performing Location [facility] - [address] [place] [address]
--- OUTSIDE RECORDS SUMMARY | 2025-01-10 18:50 | External Medical Summary ---
Author Name Unknown Address Unknown Organization [id number]:LAB[facility]ATORY [facility] [place] - [address] [place] [address] Laboratory Report Ordering Provider Test Date Status MERILIVE 11/05/2024 15:02:25 Final Observation Date Value Abnormality Reference (Units ) Status Iron 11/05/2024 15:02:25 90 33-151 (ug/dL) Final Iron-binding capacity 11/05/2024 15:02:25 496 Above high normal 250-425 (ug/dL) Final Transferrin Sat % 11/05/2024 15:02:25 18 15-55 (%) Final Performing Location LAB[facility] [place] - [address] [place] [address]
--- OUTSIDE RECORDS SUMMARY | 2025-01-10 18:50 | External Medical Summary ---
Author Name Unknown Address Unknown Organization [id number]:LAB[facility]ATORY [facility] [place] [address] [place] [address] Laboratory Report Ordering Provider Test Date Status LIVE JEREZ 11/05/2024 15:02:25 Final Observation Date Value Abnormality Reference (Units ) Status Treponema pallidum Ab [Presence] in Serum by Immunoassay 11/05/2024 15:02:25 Nonreactive Nonreactive Final No serologic evidence of syp hilis. No additional testing clinicially indicated at this time. Consider repeat testing in 2-4 weeks if acute or primary syphilis is suspected. Performing Location LABORATORY [facility] [place] - [address] [place] [address]
--- OUTSIDE RECORDS SUMMARY | 2025-01-10 18:50 | External Medical Summary | Summary of Care ---
Author Name Unknown Organization [facility] Address [address] [place] [address] Phone [phone] Care Team Providers Care Access Specialist Name Role Phone Felicitas Masterson Ivy Primary Care Provider Reason for Visit * Reason Comments Return Visit Encounter Details Date Type Department Care Team (Late st Contact Info) Description 10/14/2024 2:15 PM EST Office Visit Gynecology/Obstetric Damari Carney [address] [place] [address] Concepcion Sauceda CRNP [address] [place] [address] Encounter for supervision of normal first in second trimester*; Anxiety during ; Rh negative, antepartum Allergies No known active allergiesdocumented as of this encounter (statuses as of 10/14/2024) Medications Sertraline HCl 50 MG Oral Tablet [...] as of this encounter (statuses as of 10/14/2024) Active Problems Problem Noted Date Diagnosed Date Rh negative status during 06/23/2024 Supervision of normal first 06/22/2024 Anxiety during 06/22/2024 Overview (06/22/2024): Sertraline, weekly therapy Anxiety Anemia Estimated Date of Delivery Comme nts Yes 01/25/2025 Based on last me nstrual period of 04/20/2024 (Exact Date) documented as of this encounter (statuses as of 10/14/2024) Social History Tobacco Use Types Packs/Day Years [...] money to get more. Never true 09/06/2024 [place] Depression Scale Answer Date Recorded [place] Depression Scale Total 13 06/22/2024 The thought [...] Sign Reading Time Taken Comments Blood Pressure 126/66 10/14/2024 2:21 PM EST Pulse - - Temperature - - Respiratory Rate - - Oxygen Saturation - - Inhaled Oxygen Concentration - - Weight 91.4 kg (201 lb 6.4 oz) 10/14/2024 2:21 P M EST Height - - Body Mass Index 28.9 08/17/2024 8:50 AM EDT documented in this encounter Progress Notes * Concepcion Sauceda CRNP - 10/14/2024 2:39 PM EST 25w2d Having back pain, leg pain. Suggested chiropractor. Discussed FM as well as normal aches and pains of . Baby is active. Denies contractions, bleeding, LOF. Glucola, Rhogam next visit. SLOAN Stone * Ariana Marino CMA - 10/14/2024 2:21 PM EST 25w2d Questions concerning back pain, leg pain when sleeping on side. Different baby movements Side cramp on right documented in this encounter Plan of Treatment Upcoming Encounters Date Type Department Care Team (Late st Contact Info) Description 11/25/2024 8:30 AM EST [facility] [address] [facility] [place] [address] Concepcion Sauceda CRNP [address] [place] [address] 12/09/2024 1:00 PM EST Office Visit Dermatology, [place] [address] [facility] [place] [address] Dary Chaves PA-Christal [address] [place] [address] [place] [address] Scheduled Orders Name Type Priority Associated Diagnoses Orde r Schedule 50-G GESTATIONAL GLUCOSE, 1 HOUR Lab Routine Encounter for supervision of normal first in second trimester Expected: 11/02/2024 (Approximate), Expires: 10/14/2025 CBC WITH WBC DIFFERENTIAL AND ANEMIA REFLEX WORKUP Lab Routine Encounter for supervision of normal first in second trimester Expected: 11/02/2024 (Approximate), Expires: 10/14/2025 SYPHILIS ANTIBODY SCREEN WITH REFLEX TO RPR Lab Routine Encounter for supervision of normal first in second trimester Expected: 11/02/2024 (Approximate), Expires: 10/14/2025 TYPE AND SCREEN Lab Routine Rh negative, antepartum Expected: 10/28/2024 (Approximate), Expires: 11/13/2025 Scheduled Procedures Name Priority Associated Diagnoses Date/Ti [...] documented as of this encounter Care Teams Access Specialist Relationship Specialty Start Date End Date Felicitas Masterson DO [address] [place] [address] PCP - General Family Medicine 04/22/23 documented as of this encounter
--- OUTSIDE RECORDS SUMMARY | 2025-01-10 18:50 | External Medical Summary ---
Author Name Unknown Address Unknown Organization K01:LABORATORY [facility] [place] - [address] [place] [address] Laboratory Report Ordering Provider Test Date Status LIVE JEREZ 11/05/2024 15:02:25 Final Observation Date Value Abnormality Reference (Units ) Status Creatinine 11/05/2024 15:02:25 0.6 0.5-1.0 (mg/dL) Final Glomerular filtration rate/1.73 sq M.predicted [Volume Rate/Area] in Serum, Plasma or Blood by Creatinine-based formula (CKD-EPI) 11/05/2024 15:02:25 >90 >=60 (mL/min) Final eGFR is calculated based on the CKD-EPI 2020 equation. Performing Location LABORATORY [facility] [place] - [address] [place] [address]
--- OUTSIDE RECORDS SUMMARY | 2025-01-10 18:50 | External Medical Summary | Summary of Care ---
Author Name Unknown Organization [facility] Address [address] [place] [address] Phone [phone] Care Team Providers Care Repeater Operator Name Role Phone Felicitas Masterson Ivy Primary Care Provider Reason for Visit * Reason Comments Return Visit Encounter Details Date Type Department Care Team (Late st Contact Info) Description 08/17/2024 9:00 AM EDT Office Visit Gynecology/Obstetric s Carykayode Carney [address] [place] [address] Concepcion Sauceda CRNP [address] [place] [address] Encounter for supervision of normal first in second trimester*; Anxiety during ; Rh negative, antepartum Allergies No known active allergiesdocumented as of this encounter (statuses as of 08/17/2024) Medications Medication Sig Dispensed Refills Start Date [...] as of this encounter (statuses as of 08/17/2024) Active Problems Problem Noted Date Diagnosed Date Rh negative status during 06/23/2024 Supervision of normal first 06/22/2024 Anxiety during 06/22/2024 Overview: Sertraline, weekly therapy Anxiety Anemia Estimated Date of Delivery Comme nts Yes 01/25/2025 Based on last me nstrual period of 04/20/2024 (Exact Date) documented as of this encounter (statuses as of 08/17/2024) Social History Tobacco Use Types Packs/Day Years [...] money to get more. Never true 04/20/2024 [place] Depression Scale Answer Date Recorded [place] Depression Scale Total 13 06/22/2024 The thought [...] Reading Time Taken Comments Blood Pressure 122/68 08/17/2024 8:50 AM EDT Pulse - - Temperature - - Respiratory Rate - - Oxygen Saturation - - Inhaled Oxygen Concentration - - Weight 83.5 kg (184 lb) 08/17/2024 8:50 AM EDT Height 177.8 cm (5' 10") 08/17/2024 8:50 AM EDT Body Mass Index 26.4 08/17/2024 8:50 AM EDT documented in this encounter Progress Notes * Concepcion Sauceda CRNP - 08/17/2024 9:04 AM EDT 17w Feeling well. Nausea improved. Denies bleeding. ?quickening. Anatomy u/s with next visit. SLOAN Stone documented in this encounter Nursing Notes * Yelena Upton LPN - 08/17/2024 8:53 AM EDT 17w0d Denies concerns. documented in this encounter Plan of Treatment Upcoming Encounters Date Type Department Care Team (Late st Contact Info) Description 09/16/2024 8:30 AM EDT Imaging Radiology [address] [place] [address] 09/16/2024 10:15 AM EDT Office Visit Gynecology/Obstetrics Damari Carney [address] [place] [address] Concepcion Sauceda CRNP [address] [place] [address] 12/09/2024 1:00 PM EST [facility] [address] [facility] [address] Dary Chaves PA-C [address] [place] [address] [place] [address] Scheduled Orders Name Type Priority Associated Diagnoses Orde r Schedule US PREG SINGLE/1ST GEST, 14 WEEKS OR LATER Medical Imaging Routine Encounter for supervision of normal first in second trimester Expected: 09/16/2024 (Approximate), Expires: 09/16/2025 Scheduled Procedures Name Priority Associated Diagnoses Date/Ti [...] documented as of this encounter Care Teams Repeater Operator Relationship Specialty Start Date End Date Felicitas Masterson DO [address] [place] [address] PCP - General Family Medicine 04/22/23 documented as of this encounter
--- OUTSIDE RECORDS SUMMARY | 2025-01-10 18:50 | External Medical Summary ---
Author Name Unknown Address Unknown Organization K0G:LABORATORY [facility] [place] [address] - [address] [place] [address] Laboratory Report Ordering Provider Test Date Status LIVE JEREZ 11/05/2024 15:02:25 Final Observation Date Value Abnormality Reference (Units ) Status SYNC LEUKOCYTES IN BLOOD BY AUTOMATED COUNT 11/05/2024 15:02:25 11.50 Above high normal 4.00-10.80 (K/uL) Final Segs 11/05/2024 15:02:25 80.8 Above high normal 40.0-75.0 (%) Final Lymphs % 11/05/2024 15:02:25 10.3 Below low normal 18.0-42.0 (%) Final Monos 11/05/2024 15:02:25 6.6 1.0-11.0 (%) Final Eosinophils 11/05/2024 15:02:25 2.1 0.0-6.0 (%) Final Basos 11/05/2024 15:02:25 0.2 0.0-2.0 (%) Final Absolute Segs 11/05/2024 15:02:25 9.29 Above high normal 1.80-7.70 (K/uL) Final Lymphs, absolute 11/05/2024 15:02:25 1.19 1.00-4.80 (K/ul) Final Monos, Abs 11/05/2024 15:02:25 0.76 0.00-1.10 (K/uL) Final Eos, Abs 11/05/2024 15:02:25 0.24 0.00-0.70 (K/uL) Final Basos, Abs 11/05/2024 15:02:25 0.02 0.00-0.20 (K/uL) Final Performing Location LABORATORY [facility] [place] [address] - [address] [place] [address]
--- OUTSIDE RECORDS SUMMARY | 2025-01-10 18:50 | External Medical Summary ---
Author Name Unknown Address Unknown Organization K01:LABORATORY [facility] [place] [facility] - [address] [place] [address] Laboratory Report Ordering Provider Test Date Status LIVE JEREZ 11/05/2024 15:02:25 Final Observation Date Value Abnormality Reference (Units ) Status ABO 11/05/2024 15:02:25 A Final RH 11/05/2024 15:02:25 Negative Final RED BLOOD CELL ANTIBODY SCREEN 11/05/2024 15:02:25 Negative Final SPECIMEN EXPIRATION DATE 11/05/2024 15:02:25 11/08/2024 23:59 Final Performing Location LABORATORY [facility] [place] [facility] - [address] [place] [address]
--- OUTSIDE RECORDS SUMMARY | 2025-01-10 18:50 | External Medical Summary ---
Author Name Unknown Address Unknown Organization K01:LABORATORY [facility] - [address] [place] [address] Laboratory Report Ordering Provider Test Date Status LIVE JEREZ 11/05/2024 15:02:25 Final Observation Date Value Abnormality Reference (Units ) Status TSH 11/05/2024 15:02:25 1.01 0.27-4.20 (uIU/mL) Final Performing Location LABORATORY [facility] - [address] [place] [address]
--- NOTE | 2025-01-10 18:55 | Obstetrical Progress Note ---
Date of Service January 10, 2025 Assessment & Plan Admission and Anticipated Discharge Date Admission Date: January 10, 2025 Subjective Patient requested AROM VE;, 8/90%/0 station AROM'ed moderate meconium+ FHR categ I Continue to monitor Results & Data Vital Signs (Past 12 Hours) Vital Signs Temp Pulse Resp BP 01/10/25 17:37 83 136/75 01/10/25 17:36 36.8 C 01/10/25 15:07 37.1 C 14 01/10/25 15:04 86 128/79 01/10/25 14:31 90 126/88 01/10/25 11:23 36.9 C 84 16 126/80 01/10/25 11:21 84 126/80 01/10/25 11:20 16 01/10/25 11:20 36.9 C 16
[2025-01-10] MEDS: OXYTOCIN 30 UNITS/NSS 30 UNITS/500 ML BAG IV PRN (19:46)
--- OUTSIDE RECORDS SUMMARY | 2025-01-10 19:58 | External Medical Summary | Summary of Care ---
Author Name Unknown Organization [facility] Address [address] [place] [facility] [place] [address] Phone [phone] Care Team Providers Care Set Up Person Name Role Phone Felicitas Masterson Ivy PALOMARES Primary Care Provider Reason for Visit * Reason Onset Date Comments Appointment 01/07/2025 Encounter Details Date Type Department Care Team (Late st Contact Info) Description 01/07/2025 Telephone Family Practice [facility] [address] [place] [address] Vidya Sauceda CRNP [address] [place] [address] Appointment Allergies No known active allergiesdocumented as [...] money to get more. Never true 09/06/2024 [place] Depression Scale Answer Date Recorded [place] Depression Scale Total 13 06/22/2024 The thought [...] Damari Carney [address] [place] [address] Reba An, DNP, CNM [address] [place] [address] 12/27/2025 2:20 PM EST Office [address] [place] [phone] Dary Chaves PA-C [address] [place] [address] [place] [address] Scheduled Procedures Name Priority Associated Diagnoses Date/Ti [...] documented as of this encounter Care Teams Set Up Person Relationship Specialty Start Date End Date Felicitas Masterson DO [address] [facility] [place] [address] PCP - General Family Medicine 04/22/23 documented as of this encounter
[2025-01-10] MEDS: METHYLERGONOVINE MALEATE 0.2 MG/ML AMP IM ONE (20:06)
[2025-01-10] MEDS: miSOPROStoL 200 MCG TAB PR ONE (20:10)
[2025-01-10] MEDS: TRANEXAMIC ACID / 0.7% NACL 1,000 MG/100 ML BAG IV ONE (20:18)
[2025-01-10] MEDS ORDERED: oxyCODONE/ACETAMINOPHEN 5mg/325mg TAB PO PRN (20:19)
[2025-01-10] MEDS ORDERED: bisacodyL 10 MG SUPP PR PRN (20:19)
[2025-01-10] MEDS ORDERED: OXYTOCIN 30 UNITS/NSS 30 UNITS/500 ML BAG IV PRN (20:19)
[2025-01-10] MEDS ORDERED: HYDROCORTISONE ACETATE 25 MG SUPP PR PRN (20:19)
[2025-01-10] MEDS ORDERED: BENZOCAINE 20% SPRY 85 APPLN/85 GM CAN EXT PRN (20:19)
[2025-01-10] MEDS ORDERED: TRANEXAMIC ACID 100 MG/ML 10 ML VIAL IV ONE (20:21)
[2025-01-10] MEDS ORDERED: SODIUM CHLORIDE 0.9% 50 ML IV PRN (20:21)
[2025-01-10] MEDS ORDERED: SODIUM CHLORIDE 0.9% 100 ML IV PRN (20:21)
--- NOTE | 2025-01-10 20:27 | Delivery Summary ---
Vaginal Delivery Summary Date of Service January 10, 2025 Vaginal Delivery Summary Patient was found to be fully dilated and desires to push. She pushed for about 30 min and delivered the head and then shoulders with minimal traction at 19:41. The baby was handed off to the mother. The cord was clampedx2 and cut at 2 minute delay per parents request. The vagina and perineum were checked and found to have small but 3rd degree perineal laceration. Rectal exam was done and noted partial sphincter tone. The gloves were changes. Ext. anal Sphincter muscles were held With Allis clamps and brought to the midline, sutured with 2-0 Vicryl with figure of 8 stitches x 3. More sutures are placed around perineal body muscles to support the sphincter. rectal exam was repeated and good sphincter tone integrity was noted and no sutures were felt in the mucosa. The gloves were changed again. The vaginal mucosa was repaired with 2/0 vicryl and skin on subcuticular fashion. The placenta was delivered spontaneously as intact and complete. The uterus was explored and found to be empty. IV oxytocin infusion was started. While finishing the repair patient was found to be passing clots,. Uterus was massaged and another manual exploration was done and emptied more clots. Patient was given IM Methergine and rectal Cytotec and IV TXA infusion was started. Uterus became firm and bleeding minimal. QBL was 1236 ml. The baby was a viable female , Apgars 8/9, the weight is pending The mother and the baby tolerated the procedure well. She was given 2 g of cefazolin be during procedure. Blood will be drawn for coags fibrinogen and CBC, type and cross is ordered as stat to be available if blood transfusion needed. No complications happened and I was present during whole procedure.
[2025-01-10] MEDS: DIPHTHER/TETAN/PERTUS Vaccine (Tdap, Adol/Adult) 0.5mL IM ONE (20:37)
[2025-01-10] MEDS: ACETAMINOPHEN 325 MG TAB PO PRN (20:39)
[2025-01-10] MEDS: IBUPROFEN 600 MG TAB PO PRN (20:39)
[2025-01-10 21:04] LABS: Hematocrit (blood only) 36.7 % (37.0-47.0); Hemoglobin 12.5 g/dl (12.0-16.0); Mean Corpuscular Hemoglobin 30.9 pg (25.0-34.0); Mean Corpuscular Hgb Conc 34.1 g/dL (32.0-36.0); Mean Corpuscular Volume 90.8 fL (80.0-100.0); Platelet Count 208 K/uL (130-400); RDW Coefficient of Variation 13.9 % (11.5-14.5); RDW Standard Deviation 45.8 fL (36.4-46.3); Red Blood Count 4.04 M/uL (4.20-5.40); White Blood Count 18.44 K/ul (4.8-10.8)
[2025-01-10] MEDS: MEASLES, MUMPS & RUBELLA VIRUS VACCINE (MMR) 0.5ML VIAL SQ ONE (21:19)
[2025-01-10] MEDS: ceFAZolin 2000MG 2,000 MG/15 ML SYR IV STA (21:19)
[2025-01-10 21:28] LABS: Basophils # (auto) 0.02 K/uL (0.00-0.20); Basophils % (auto) 0.1 %; Immature Granulocytes # (auto) 0.23 K/uL (0.01-0.20); Immature Granulocytes % (auto) 1.2 %; Lymphocytes # (auto) 0.45 K/uL (1.20-3.40); Lymphocytes % (auto) 2.4 %; Monocytes # (auto) 0.92 K/uL (0.11-0.59); Neutrophils # (auto) 16.82 K/uL (1.40-6.50); Neutrophils % (auto) 91.3 %; Polychromasia 1+
[2025-01-10] MEDS: METHYLERGONOVINE MALEATE 0.2 MG TAB PO SCH (21:31)
[2025-01-10] MEDS: FERROUS SULFATE 325 MG TAB PO SCH (21:31)
[2025-01-10] MEDS: DOCUSATE SODIUM 100 MG CAP PO SCH (21:31)
[2025-01-10 21:34] LABS: Fibrinogen 496 mg/dl (184-400); INR 0.9 (0.9-1.1); Partial Thromboplastin Ratio 0.9; Partial Thromboplastin Time 24 Seconds (21-31); Prothrombin Time 9.9 Seconds (9.0-12.0)
[2025-01-10] MEDS: SERTRALINE HCL 50 MG TABLET PO SCH (21:37)
[2025-01-11 06:37] LABS: Hematocrit (blood only) 31.9 % (37.0-47.0); Mean Corpuscular Hemoglobin 30.8 pg (25.0-34.0); Mean Corpuscular Hgb Conc 34.5 g/dL (32.0-36.0); Mean Corpuscular Volume 89.4 fL (80.0-100.0); Mean Platelet Volume 10.3 fL (9.4-12.4); Platelet Count 201 K/uL (130-400); RDW Coefficient of Variation 13.9 % (11.5-14.5); RDW Standard Deviation 45.3 fL (36.4-46.3); Red Blood Count 3.57 M/uL (4.20-5.40); White Blood Count 17.66 K/ul (4.8-10.8)
[2025-01-11] MEDS ORDERED: Nursing to Pharmacy Communication SCH (08:45)
[2025-01-11] MEDS: IRON SUCROSE 200 MG in SODIUM CHLORIDE 0.9% 100 ML IV ONE (08:51)
[2025-01-11] MEDS: PRENATAL VITAMIN 1 TAB PO SCH (09:00)
--- NOTE | 2025-01-11 12:29 | Obstetrical Progress Note ---
Date of Service January 11, 2025 Assessment & Plan (1) Anemia, : PPD #1 Pt doing well No complaints started on Venofer and PO iron d/c home tomorrow Results & Data Vital Signs (Past 12 Hours) Vital Signs Temp Pulse Pulse Resp BP BP Pulse Ox 01/11/25 09:34 36.6 C 100 H 16 117/82 98 01/11/25 07:30 36.6 C 100 H 16 117/82 98 01/11/25 03:42 37.0 C 98 H 16 125/81 O2 Del Method 01/11/25 09:34 01/11/25 07:30 Room Air 01/11/25 03:42 Room Air
[2025-01-11] MEDS: bisacodyL 5 MG TABEC PO SCH (19:55)
[2025-01-11 20:19] VITALS: TEMP 97.5
[2025-01-11] MEDS ORDERED: METHYLERGONOVINE MALEATE 0.2 MG TAB PO SCH (20:30)
[2025-01-11] MEDS: SERTRALINE HCL 50 MG TABLET PO SCH (21:22)
[2025-01-12 06:02] LABS: Basophils # (auto) 0.04 K/uL (0.00-0.20); Basophils % (auto) 0.3 %; Eosinophils # (auto) 0.28 K/uL (0.00-0.50); Eosinophils % (auto) 2.3 %; Hematocrit (blood only) 27.9 % (37.0-47.0); Hemoglobin 9.6 g/dl (12.0-16.0); Immature Granulocytes # (auto) 0.29 K/uL (0.01-0.20); Immature Granulocytes % (auto) 2.3 %; Lymphocytes # (auto) 2.04 K/uL (1.20-3.40); Lymphocytes % (auto) 16.4 %; Mean Corpuscular Hemoglobin 31.7 pg (25.0-34.0); Mean Corpuscular Hgb Conc 34.4 g/dL (32.0-36.0); Mean Corpuscular Volume 92.1 fL (80.0-100.0); Mean Platelet Volume 9.9 fL (9.4-12.4); Monocytes # (auto) 1.21 K/uL (0.11-0.59); Monocytes % (auto) 9.8 %; Neutrophils # (auto) 8.55 K/uL (1.40-6.50); Neutrophils % (auto) 68.9 %; Platelet Count 187 K/uL (130-400); RDW Coefficient of Variation 14.3 % (11.5-14.5); Red Blood Count 3.03 M/uL (4.20-5.40); White Blood Count 12.41 K/ul (4.8-10.8)
--- NOTE | 2025-01-12 07:18 | Obstetrical Progress Note ---
Date of Service January 12, 2025 Assessment & Plan (1) Anemia, : PPD #2 pt doing well discharged home in stable condition Results & Data Vital Signs (Past 12 Hours) Vital Signs Temp Pulse Resp BP Pulse Ox O2 Del Method 01/11/25 23:45 36.4 C L 90 18 110/76 97 Room Air 01/11/25 19:47 36.4 C L 80 18 106/73 98 Room Air
[2025-01-12 09:34] VITALS: PULSE 101; RESP 14; O2SAT 99
[2025-01-12 12:34] VITALS: BP 119/80
== END 2025-01-12 14:12 | disposition home health service (06) | DRG 768 ==
LOC: OPB 11:05 → 4S1 11:07 → 4E2 23:16